=== PATIENT | male | born 1965 | race Caucasian/White ===

== ENCOUNTER 2017-08-23 11:57 | Inpatient (IN) | payer OTHER ==
[2017-08-23 15:13] VITALS: BMI 31.1
--- NOTE | 2017-08-23 15:46 | HP ---
CIWA Score - CIWA Score Nausea/Vomitin-Mild Nausea/No Vomiting Muscle Tremors: 4-Moderate,w/Arms Extend Anxiety: 4-Mod. Anxious/Guarded Agitation: 4-Moderately Restless Paroxysmal Sweats: 3 Orientation: 0-Oriented Tacttile Disturbances: 1-Very Mild Itch/Numbness Auditory Disturbances: 0-None Visual Disturbances: 0-None Headache: 1-Very Mild CIWA-Ar Total Score: 18 Admission ROS [facility] - HPI Chief Complaint: I need to be here to get this alcohol out of my system. Allergies/Adverse Reactions: Allergies Allergy/AdvReac Type Severity Reaction Status Date / Time shellfish derived Allergy Severe Itching Verified 08/23/17 15:18 No Known Drug Allergies Allergy Verified 08/23/17 15:18 History of Present Illness: pt is a 52yr old male with a history of alcohol dependence seeking detox for treatment. Exam Limitations: No Limitations - Ebola screening Have you traveled outside of the country in the last 21 days: No Have you had contact with anyone from an Ebola affected area: No Have you been sick,other than usual withdrawal symptoms: No Do you have a fever: No - Review of Systems Constitutional: Chills, Diaphoresis, Night Sweats, Changes in sleep EENT: reports: Nose Congestion Respiratory: reports: Cough Cardiac: reports: No Symptoms Reported GI: reports: No Symptoms Reported, Poor Appetite, Poor Fluid Intake : reports: No Symptoms Reported Musculoskeletal: reports: Back Pain, Joint Pain Integumentary: reports: Bruising (left middle finger), Flushing, Sweating Neuro: reports: Headache, Tingling, Tremors Endocrine: reports: Excessive Sweating, Flushing, Intolerance to Heat Hematology: reports: No Symptoms Reported Psychiatric: reports: Judgement Intact, Mood/Affect Appropiate, Orientated x3, Agitated, Anxious Other Systems: Reviewed and Negative Patient History - Patient Medical History Hx Anemia: No Hx Asthma: Yes Hx Chronic Obstructive Pulmonary Disease (COPD): No Hx Cancer: No Hx Cardiac Disorders: No Hx Congestive Heart Failure: No Hx Hypertension: No Hx Hypercholesterolemia: No Hx Pacemaker: No HX Cerebrovascular Accident: No Hx Seizures: No Hx Dementia: No Hx Diabetes: No Hx Gastrointestinal Disorders: No Hx Liver Disease: No Hx Genitourinary Disorders: Yes (PT HAS BPH.) Hx Sexually Transmitted Disorders: No Hx Renal Disease (ESRD): No Hx Thyroid Disease: No Hx Human Immunodeficiency Virus (HIV): No (last 2016 negative) Hx Hepatitis C: Yes (undetecable) Hx Depression: Yes Hx Suicide Attempt: No (denies) Hx Bipolar Disorder: No Hx Schizophrenia: No - Patient Surgical History Past Surgical History: Yes Hx Neurologic Surgery: No Hx Cataract Extraction: No Hx Cardiac Surgery: No Hx Lung Surgery: No Hx Breast Surgery: No Hx Breast Biopsy: No Hx Abdominal Surgery: No Hx Appendectomy: No Hx Cholecystectomy: No Hx Genitourinary Surgery: No Hx Section: No Hx Orthopedic Surgery: No Other Surgical History: LEFT ARM SURGERY@C 14 TEARS laceration of tendon to left thumb at age 20 ye Anesthesia Reaction: No - PPD History Previous Implant?: Yes Documented Results: Negative w/proof Implanted On Prior [facility] Admission?: Yes Date: 02/10/17 Results: 0 MM PPD to be Administered?: No - Reproductive History Patient is a Female of Child Bearing Age (11 -55 yrs old): No - Smoking Cessation Smoking history: Current every day smoker Have you smoked in the past 12 months: Yes Aproximately how many cigarettes per day: 4 Hx Chewing Tobacco Use: No Initiated information on smoking cessation: Yes 'Breaking Loose' booklet given: 08/23/17 - Substance & Tx. History Hx Alcohol Use: Yes Substance Use Type: Alcohol Hx Substance Use Treatment: No - Substances Abused Alcohol Route: Oral Frequency: Daily Amount used: 3-4 PINTS VODKA Age of first use: 13 Date of Last Use: 08/23/17 Family Disease History - Family Disease History Family Disease History: Diabetes: Mother (), Other: Father (alcohol, ), Brother (alcohol,) Admission Physical Exam S - Vital Signs Vital Signs: Vital Signs - 24 hr 08/23/17 14:58 Temperature 97.7 F Pulse Rate 105 H Respiratory 20 Rate Blood Pressure 104/69 - Physical General Appearance: Yes: Appropriately Dressed, Moderate Distress, Obese, Tremorous, Irritable, Sweating, Anxious HEENTM: Yes: Normal Voice, Nasal Congestion, Rhinorrhea Respiratory: Yes: Lungs Clear, Normal Breath Sounds, No Respiratory Distress Neck: Yes: No masses,lesions,Nodules Breast: Yes: Within Normal Limits Cardiology: Yes: Regular Rhythm, Regular Rate, S1, S2 Abdominal: Yes: Normal Bowel Sounds, Non Tender, Soft Genitourinary: Yes: Within Normal Limits Back: Yes: Normal Inspection Musculoskeletal: Yes: full range of Motion, Back pain Extremities: Yes: Normal Capillary Refill, Normal Inspection, Tremors Neurological: Yes: Fully Oriented, Alert, Normal Response Integumentary: Yes: Other (bruise with some swelling to left middle finger) Lymphatic: Yes: Within Normal Limits - Diagnostic (1) Alcohol dependence with uncomplicated withdrawal Current Visit: Yes Status: Chronic (2) Asthma Current Visit: Yes Status: Chronic Qualifiers: Asthma severity: mild Asthma complication type: uncomplicated (3) Hepatitis C Current Visit: No Status: Acute (4) Use of cane as ambulatory aid Current Visit: Yes Status: Chronic (5) Benign prostatic hyperplasia with urinary obstruction Current Visit: Yes Status: Chronic (6) Superficial bruising of finger Current Visit: Yes Status: Chronic Qualifiers: Encounter type: initial encounter Laterality: left Cleared for Admission [facility] - Detox or Rehab [facility] Level of Care: Medically Managed Detox Regimen/Protocol: Librium [facility] Breath Alcohol Content Breath Alcohol Content: 0.321 Urine Drug Screen - Results Drug Screen Negative: No Urine Drug Screen Results: JULIUS-Cocaine
[2017-08-23] MEDS ORDERED: MAG HYDROX/AL HYDROX/SIMETH 30 ML UNIT-DOSE CUP PO PRN (15:51)
[2017-08-23] MEDS ORDERED: MAGNESIUM HYDROX 2400MG/30ML ORAL SUSPENSION 30 ML CUP PO PRN (15:51)
[2017-08-23] MEDS ORDERED: P-EPHED 60MG/TRIPROLIDI 2.5MG TABLET PO PRN (15:51)
[2017-08-23] MEDS ORDERED: IBUPROFEN 400 MG TABLET (FP) PO PRN (15:51)
[2017-08-23] MEDS ORDERED: guaiFENesin/D-METHORPHAN HB 10 ML UNIT-DOSE CUPS PO PRN (15:51)
[2017-08-23] MEDS ORDERED: MAGNESIUM CITRATE 300 ML BOTTLE PO PRN (15:51)
[2017-08-23] MEDS ORDERED: ACETAMINOPHEN 325 MG TABLET (FP) PO PRN (15:51)
[2017-08-23] MEDS ORDERED: LOPERAMIDE HCL 2 MG CAPSULE PO PRN (15:51)
[2017-08-23] MEDS ORDERED: chlordiazePOXIDE HCL 25 MG CAPSULE PO PRN (15:51)
[2017-08-23] MEDS ORDERED: MENTHOL/PHENOL 1 EACH UD MM PRN (15:51)
[2017-08-23] MEDS ORDERED: ALBUTEROL SO4 18 GM HFA INHALER IH PRN (15:52)
[2017-08-23] MEDS ORDERED: chlordiazePOXIDE HCL 25 MG CAPSULE PO ONE (18:15)
[2017-08-23] MEDS: chlordiazePOXIDE HCL 25 MG CAPSULE PO SCH ×2 (19:04→22:07)
[2017-08-23] MEDS: hydrOXYzine PAMOATE 50 MG CAPSULE (FP) PO PRN (22:07)
[2017-08-23] MEDS: THIAMINE HCL 100 MG TABLET (FP) PO SCH (22:07)
[2017-08-23] MEDS: BACITRACIN 0.9 GM PACKET TP SCH (22:08)
[2017-08-23 22:55] LABS: URINE APPEARANCE CLEAR; URINE BILIRUBIN NEGATIVE (NEGATIVE); URINE BLOOD NEGATIVE (NEGATIVE); URINE COLOR YELLOW; URINE GLUCOSE (UA) 3+ (NEGATIVE); URINE KETONE NEGATIVE (NEGATIVE); URINE LEUK ESTERASE NEGATIVE (NEGATIVE); URINE NITRITE NEGATIVE (NEGATIVE); URINE PROTEIN NEGATIVE (NEGATIVE); URINE UROBILINOGEN 4.0 E.U/dl mg/dL (0.2-1.0)
[2017-08-24] MEDS: chlordiazePOXIDE HCL 25 MG CAPSULE PO SCH ×4 (05:30→22:19)
--- NOTE | 2017-08-24 10:08 | PN ---
S CIWA - CIWA Score Nausea/Vomitin Muscle Tremors: 3 Anxiety: 3 Agitation: 3 Paroxysmal Sweats: 1-Minimal Palms Moist Orientation: 0-Oriented Tacttile Disturbances: 1-Very Mild Itch/Numbness Auditory Disturbances: 1-Very Mild Visual Disturbances: 0-None Headache: 2-Mild CIWA-Ar Total Score: 17 BHS Progress Note (SOAP) Subjective: ALERT,IRRITABLE,ANXIOUS,INTERRUPTED SLEEP,TREMOR,BACK PAIN Objective: 08/24/17 10:07 Vital Signs Temperature 97.7 F 08/24/17 06:45 Pulse Rate 65 08/24/17 07:30 Respiratory Rate 18 08/24/17 07:30 Blood Pressure 141/85 08/24/17 06:45 O2 Sat by Pulse Oximetry (%) EKG NSR,NORMAL ECG Laboratory Last Values Urine Color Yellow 08/23/17 Unknown Urine Appearance Clear 08/23/17 Unknown Urine pH 6.0 (5.0-8.0) 08/23/17 Unknown Ur Specific [place] 1.011 (1.001-1.035) 08/23/17 Unknown Urine Protein Negative (NEGATIVE) 08/23/17 Unknown Urine Glucose (UA) 3+ (NEGATIVE) H 08/23/17 Unknown Urine Ketones Negative (NEGATIVE) 08/23/17 Unknown Urine Blood Negative (NEGATIVE) 08/23/17 Unknown Urine Nitrite Negative (NEGATIVE) 08/23/17 Unknown Urine Bilirubin Negative (NEGATIVE) 08/23/17 Unknown Urine Urobilinogen 4.0 e.u/dl mg/dL (0.2-1.0) 08/23/17 Unknown Ur Leukocyte Esterase Negative (NEGATIVE) 08/23/17 Unknown LABS PENDING Assessment: 08/24/17 10:07 WITHDRAWAL SYMPTOM Plan: CONTINUE DETOX
[2017-08-24 10:13] LABS: HEMATOCRIT 46.7 % (35.4-49); HEMOGLOBIN 15.3 GM/dL (11.7-16.9); MCH 33.7 pg (25.7-33.7); MCHC 32.9 g/dl (32.0-35.9); MEAN CELL VOLUME 102.7 fl (80-96); MEAN PLT VOLUME 8.7 fl (7.5-11.1); PLATELET COUNT 161 K/MM3 (134-434); RBC 4.55 M/mm3 (4.00-5.60); RDW 13.9 % (11.9-15.9); WHITE BLOOD COUNT 9.4 K/mm3 (4.0-10.0)
[2017-08-24] MEDS: LIDOCAINE 5% TOPICAL PATCH TP SCH (10:19)
[2017-08-24] MEDS: TAMSULOSIN HCL 0.4 MG CAP.ER.24H (FP) PO SCH (10:19)
[2017-08-24] MEDS: PRENATAL VITAMINS W/ FOLIC ACID TABLET (FP) PO SCH (10:19)
[2017-08-24] MEDS: BACITRACIN 0.9 GM PACKET TP SCH ×2 (10:19→22:19)
[2017-08-24] MEDS: NICOTINE 21 MG/24 HOURS TOPICAL PATCH TD SCH (10:21)
[2017-08-24 10:31] LABS: CHLORIDE 103 mmol/L (98-107); POTASSIUM 3.6 mmol/L (3.5-5.1); SODIUM 141 mmol/L (136-145)
[2017-08-24 10:56] LABS: ALBUMIN 2.8 g/dl (3.4-5.0); ALK PHOS 74 U/L (45-117); ANION GAP 12 (8-16); BILIRUBIN,TOTAL 0.8 mg/dL (0.2-1.0); BLOOD UREA NITROGEN 6 mg/dL (7-18); CALCIUM 8.5 mg/dL (8.5-10.1); CO2 26 mmol/L (21-32); CREATININE 0.5 mg/dL (0.7-1.3); GLUCOSE,RANDOM 92 mg/dL (74-106); SGOT/AST 46 U/L (15-37); SGPT/ALT 46 U/L (12-78); TOT PROT 6.3 g/dl (6.4-8.2)
--- NOTE | 2017-08-24 11:03 | CONSULT ---
[facility] Psychiatric Consult - Data Date of interview: 08/24/17 Admission source: [facility] Identifying data: Pt. is a 52 year old single male, without kids, and currently unemployed. This is one of multiple admissions for patient. Pt. admitted to for alcohol dependence. Substance Abuse History: Following information confirmed with Mr. Potts: Smoking Cessation. Smoking history: Current every day smoker. Have you smoked in the past 12 months: Yes. Aproximately how many cigarettes per day: 4. Hx Chewing Tobacco Use: No. Initiated information on smoking cessation: Yes. ' Breaking Loose' booklet given: 08/23/17. - Substance & Tx. History. Hx Alcohol Use: Yes. Substance Use Type: Alcohol. Hx Substance Use Treatment: No. - Substances Abused. Alcohol. Route: Oral. Frequency: Daily. Amount used: 3-4 PINTS VODKA. Age of first use: 13. Date of Last Use: 08/23/17 Medical History: Asthma, BPH, Hep C Psychiatric History: Pt. denies h/o psychiatric hospitalizations and suicide attempts. Pt. reports living in the building called "[facility]" in [place] and see's a psychiatrist there every six months. Pt. denies h/o taking medications and diagnosis is unknown. Pt. denies suicidal and homicidal ideation. Physical/Sexual Abuse/Trauma History: Denies. Mental Status Exam - Mental Status Exam Alert and Oriented to: Time, Place, Person Cognitive Function: Good Patient Appearance: Well Groomed Mood: Euthymic Affect: Mood Congruent Patient Behavior: Cooperative Speech Pattern: Appropriate Voice Loudness: Normal Thought Process: Goal Oriented Thought Disorder: Not Present Hallucinations: Denies Suicidal Ideation: Denies Homicidal Ideation: Denies Insight/Judgement: Poor Sleep: Poorly Appetite: Fair Muscle strength/Tone: Normal Gait/Station: Normal Psychiatric Findings - Problem List ([place] 1, 2,3) (1) Alcohol dependence with uncomplicated withdrawal Current Visit: Yes Status: Acute (2) Insomnia Current Visit: Yes Status: Acute - Initial Treatment Plan Initial Treatment Plan: Psychoeducation provided. Detoxification in progress. Benadryl 50mg qhs prn ordered for insomnia. Benefits and side effects discussed. Verbal consent given.
[2017-08-24] MEDS ORDERED: diphenhydrAMINE HCL 50 MG CAPSULE PO PRN (22:00)
[2017-08-24] MEDS: hydrOXYzine PAMOATE 50 MG CAPSULE (FP) PO PRN (22:19)
[2017-08-24] MEDS: THIAMINE HCL 100 MG TABLET (FP) PO SCH (22:19)
[2017-08-24] MEDS: LIDOCAINE PATCH REMOVAL MC SCH (22:37)
[2017-08-25] MEDS: chlordiazePOXIDE HCL 25 MG CAPSULE PO SCH ×2 (05:53→10:33)
[2017-08-25] MEDS: PRENATAL VITAMINS W/ FOLIC ACID TABLET (FP) PO SCH (10:33)
[2017-08-25] MEDS: NICOTINE 21 MG/24 HOURS TOPICAL PATCH TD SCH (10:33)
[2017-08-25] MEDS: TAMSULOSIN HCL 0.4 MG CAP.ER.24H (FP) PO SCH (10:33)
[2017-08-25] MEDS: BACITRACIN 0.9 GM PACKET TP SCH ×2 (10:34→21:59)
[2017-08-25] MEDS: LIDOCAINE 5% TOPICAL PATCH TP SCH (10:34)
[2017-08-25] MEDS: chlordiazePOXIDE 5 MG CAPSULE PO SCH ×2 (17:36→21:59)
--- NOTE | 2017-08-25 19:07 | PN ---
[facility] CIWA - CIWA Score Nausea/Vomitin Muscle Tremors: 3 Anxiety: 3 Agitation: 3 Paroxysmal Sweats: 3 Orientation: 0-Oriented Tacttile Disturbances: 0-None Auditory Disturbances: 0-None Visual Disturbances: 0-None Headache: 0-None Present CIWA-Ar Total Score: 15 S Progress Note (SOAP) Subjective: sleep disturbance tired shakes Objective: 08/25/17 19:06 A & Ox 3 Vital Signs Temperature 98.2 F 08/25/17 18:10 Pulse Rate 116 H 08/25/17 18:10 Respiratory Rate 20 08/25/17 18:10 Blood Pressure 144/86 08/25/17 18:10 O2 Sat by Pulse Oximetry (%) Laboratory Last Values WBC 9.4 K/mm3 (4.0-10.0) 08/24/17 07:40 RBC 4.55 M/mm3 (4.00-5.60) 08/24/17 07:40 Hgb 15.3 GM/dL (11.7-16.9) 08/24/17 07:40 Hct 46.7 % (35.4-49) 08/24/17 07:40 MCV 102.7 fl (80-96) H 08/24/17 07:40 MCH 33.7 pg (25.7-33.7) 08/24/17 07:40 MCHC 32.9 g/dl (32.0-35.9) 08/24/17 07:40 RDW 13.9 % (11.9-15.9) 08/24/17 07:40 Plt Count 161 K/MM3 (134-434) 08/24/17 07:40 MPV 8.7 fl (7.5-11.1) 08/24/17 07:40 Sodium 141 mmol/L (136-145) 08/24/17 07:40 Potassium 3.6 mmol/L (3.5-5.1) 08/24/17 07:40 Chloride 103 mmol/L (98-107) 08/24/17 07:40 Carbon Dioxide 26 mmol/L (21-32) 08/24/17 07:40 Anion Gap 12 (8-16) 08/24/17 07:40 BUN 6 mg/dL (7-18) L D 08/24/17 07:40 Creatinine 0.5 mg/dL (0.7-1.3) L 08/24/17 07:40 Creat Clearance w eGFR > 60 (>60) 08/24/17 07:40 Random Glucose 92 mg/dL (74-106) D 08/24/17 07:40 Calcium 8.5 mg/dL (8.5-10.1) 08/24/17 07:40 Total Bilirubin 0.8 mg/dL (0.2-1.0) D 08/24/17 07:40 AST 46 U/L (15-37) H D 08/24/17 07:40 ALT 46 U/L (12-78) D 08/24/17 07:40 Alkaline Phosphatase 74 U/L (45-117) 08/24/17 07:40 Total Protein 6.3 g/dl (6.4-8.2) L 08/24/17 07:40 Albumin 2.8 g/dl (3.4-5.0) L 08/24/17 07:40 Urine Color Yellow 08/23/17 Unknown Urine Appearance Clear 08/23/17 Unknown Urine pH 6.0 (5.0-8.0) 08/23/17 Unknown Ur Specific [place] 1.011 (1.001-1.035) 08/23/17 Unknown Urine Protein Negative (NEGATIVE) 08/23/17 Unknown Urine Glucose (UA) 3+ (NEGATIVE) H 08/23/17 Unknown Urine Ketones Negative (NEGATIVE) 08/23/17 Unknown Urine Blood Negative (NEGATIVE) 08/23/17 Unknown Urine Nitrite Negative (NEGATIVE) 08/23/17 Unknown Urine Bilirubin Negative (NEGATIVE) 08/23/17 Unknown Urine Urobilinogen 4.0 e.u/dl mg/dL (0.2-1.0) 08/23/17 Unknown Ur Leukocyte Esterase Negative (NEGATIVE) 08/23/17 Unknown RPR Titer Nonreactive (NONREACTIVE) 08/24/17 07:40 HIV 1&2 Antibody Screen Negative 08/24/17 07:40 HIV P24 Antigen Negative 08/24/17 07:40 labs noted Assessment: 08/25/17 19:06 withdrawal sx Plan: continue detox increase fluids
[2017-08-25] MEDS: THIAMINE HCL 100 MG TABLET (FP) PO SCH (21:59)
[2017-08-25] MEDS: diphenhydrAMINE HCL 50 MG CAPSULE PO PRN (21:59)
[2017-08-25] MEDS: LIDOCAINE PATCH REMOVAL MC SCH (23:16)
[2017-08-26] MEDS: chlordiazePOXIDE 5 MG CAPSULE PO SCH ×2 (06:04→10:22)
[2017-08-26] MEDS: TAMSULOSIN HCL 0.4 MG CAP.ER.24H (FP) PO SCH (10:22)
[2017-08-26] MEDS: BACITRACIN 0.9 GM PACKET TP SCH ×2 (10:22→22:11)
[2017-08-26] MEDS: PRENATAL VITAMINS W/ FOLIC ACID TABLET (FP) PO SCH (10:22)
[2017-08-26] MEDS: NICOTINE 21 MG/24 HOURS TOPICAL PATCH TD SCH (10:23)
[2017-08-26] MEDS: LIDOCAINE 5% TOPICAL PATCH TP SCH (10:40)
--- NOTE | 2017-08-26 10:53 | PN ---
S Progress Note (SOAP) Subjective: alert oriented x 3 tolerate food and fluid well confident in sobriety self management Objective: 08/26/17 10:52 Vital Signs Temperature 97.7 F 08/26/17 10:00 Pulse Rate 110 H 08/26/17 10:00 Respiratory Rate 20 08/26/17 10:00 Blood Pressure 136/88 08/26/17 10:00 O2 Sat by Pulse Oximetry (%) Laboratory Last Values WBC 9.4 K/mm3 (4.0-10.0) 08/24/17 07:40 RBC 4.55 M/mm3 (4.00-5.60) 08/24/17 07:40 Hgb 15.3 GM/dL (11.7-16.9) 08/24/17 07:40 Hct 46.7 % (35.4-49) 08/24/17 07:40 MCV 102.7 fl (80-96) H 08/24/17 07:40 MCH 33.7 pg (25.7-33.7) 08/24/17 07:40 MCHC 32.9 g/dl (32.0-35.9) 08/24/17 07:40 RDW 13.9 % (11.9-15.9) 08/24/17 07:40 Plt Count 161 K/MM3 (134-434) 08/24/17 07:40 MPV 8.7 fl (7.5-11.1) 08/24/17 07:40 Sodium 141 mmol/L (136-145) 08/24/17 07:40 Potassium 3.6 mmol/L (3.5-5.1) 08/24/17 07:40 Chloride 103 mmol/L (98-107) 08/24/17 07:40 Carbon Dioxide 26 mmol/L (21-32) 08/24/17 07:40 Anion Gap 12 (8-16) 08/24/17 07:40 BUN 6 mg/dL (7-18) L D 08/24/17 07:40 Creatinine 0.5 mg/dL (0.7-1.3) L 08/24/17 07:40 Creat Clearance w eGFR > 60 (>60) 08/24/17 07:40 Random Glucose 92 mg/dL (74-106) D 08/24/17 07:40 Calcium 8.5 mg/dL (8.5-10.1) 08/24/17 07:40 Total Bilirubin 0.8 mg/dL (0.2-1.0) D 08/24/17 07:40 AST 46 U/L (15-37) H D 08/24/17 07:40 ALT 46 U/L (12-78) D 08/24/17 07:40 Alkaline Phosphatase 74 U/L (45-117) 08/24/17 07:40 Total Protein 6.3 g/dl (6.4-8.2) L 08/24/17 07:40 Albumin 2.8 g/dl (3.4-5.0) L 08/24/17 07:40 Urine Color Yellow 08/23/17 Unknown Urine Appearance Clear 08/23/17 Unknown Urine pH 6.0 (5.0-8.0) 08/23/17 Unknown Ur Specific [place] 1.011 (1.001-1.035) 08/23/17 Unknown Urine Protein Negative (NEGATIVE) 08/23/17 Unknown Urine Glucose (UA) 3+ (NEGATIVE) H 08/23/17 Unknown Urine Ketones Negative (NEGATIVE) 08/23/17 Unknown Urine Blood Negative (NEGATIVE) 08/23/17 Unknown Urine Nitrite Negative (NEGATIVE) 08/23/17 Unknown Urine Bilirubin Negative (NEGATIVE) 08/23/17 Unknown Urine Urobilinogen 4.0 e.u/dl mg/dL (0.2-1.0) 08/23/17 Unknown Ur Leukocyte Esterase Negative (NEGATIVE) 08/23/17 Unknown RPR Titer Nonreactive (NONREACTIVE) 08/24/17 07:40 HIV 1&2 Antibody Screen Negative 08/24/17 07:40 HIV P24 Antigen Negative 08/24/17 07:40 lab noted Assessment: 08/26/17 10:52 mild withdrawal sx Plan: medically supervised detox
[2017-08-26] MEDS: chlordiazePOXIDE HCL 10 MG CAPSULE PO SCH ×2 (17:42→22:11)
[2017-08-26] MEDS: THIAMINE HCL 100 MG TABLET (FP) PO SCH (22:11)
[2017-08-26] MEDS: diphenhydrAMINE HCL 50 MG CAPSULE PO PRN (22:12)
[2017-08-26] MEDS: LIDOCAINE PATCH REMOVAL MC SCH (23:50)
[2017-08-27] MEDS: chlordiazePOXIDE HCL 10 MG CAPSULE PO SCH (06:00)
[2017-08-27] MEDS: NICOTINE 21 MG/24 HOURS TOPICAL PATCH TD SCH (09:51)
[2017-08-27] MEDS: LIDOCAINE 5% TOPICAL PATCH TP SCH (09:51)
[2017-08-27] MEDS: TAMSULOSIN HCL 0.4 MG CAP.ER.24H (FP) PO SCH (09:51)
[2017-08-27] MEDS: PRENATAL VITAMINS W/ FOLIC ACID TABLET (FP) PO SCH (09:51)
[2017-08-27] MEDS: BACITRACIN 0.9 GM PACKET TP SCH (09:51)
--- NOTE | 2017-08-27 09:57 | DS ---
[facility] Detox Discharge Summary Admission Date: 08/23/17 Discharge Date: 08/27/17 - History Present History: Alcohol Dependence Additional Comments: FOLLOW UP WITH AFTER CARE PROGRAM ARRANGEMENT Pertinent Past History: ASTHMA HEPATITIS C USE CANE FOR AMBULATORY AID LOW BACK PAIN CHRONIC BPH - Physical Exam Results Vital Signs: Vital Signs Temperature 97.0 F L 08/27/17 06:03 Pulse Rate 79 08/27/17 06:03 Respiratory Rate 20 08/27/17 06:03 Blood Pressure 129/75 08/27/17 06:03 O2 Sat by Pulse Oximetry (%) Pertinent Admission Physical Exam Findings: WITHDRAWAL SIGNS AND SYMPTOM - Treatment Hospital Course: Detox Protocol Followed, Detoxed Safely, Responded well, Discharged Condition Good, Rehab Referral Accepted Patient has Accepted a Rehab Referral to: [facility] - Medication Discharge Medications: Ambulatory Orders Loratadine [Alavert] 10 mg PO DAILY 02/08/17 Naltrexone HCl [Revia -] 50 mg PO DAILY 02/08/17 Ibuprofen [Motrin -] 600 mg PO TID 08/23/17 Albuterol Sulfate Inhaler - [Ventolin HFA Inhaler -] 2 inh PO Q4H PRN #1 inhaler 08/26/17 Tamsulosin HCl [Flomax -] 0.4 mg PO DAILY #30 cap.er.24h 08/26/17 - Diagnosis (1) Alcohol dependence with uncomplicated withdrawal Current Visit: Yes Status: Acute (2) Asthma Current Visit: Yes Status: Chronic Qualifiers: Asthma severity: mild Asthma complication type: uncomplicated (3) Use of cane as ambulatory aid Current Visit: Yes Status: Chronic (4) Hepatitis C Current Visit: No Status: Acute (5) Herniated disc Current Visit: No Status: Acute (6) Low back pain Current Visit: No Status: Acute (7) BPH (benign prostatic hyperplasia) Current Visit: Yes Status: Acute - AMA Did Patient Leave Against Medical Advice: No
[2017-08-27 10:55] VITALS: BP 118/73; PULSE 113; TEMP 96.4
--- NOTE | 2017-08-28 13:38 | EKG ---
Test Reason : Blood Pressure : / mmHG Vent. Rate : 093 BPM Atrial Rate : 093 BPM P-R Int : 124 ms QRS Dur : 082 ms QT Int : 364 ms P-R-T Axes : 065 -09 024 degrees QTc Int : 452 ms NORMAL SINUS RHYTHM NORMAL ECG WHEN COMPARED WITH ECG OF 08-FEB-2017 18:00, NO SIGNIFICANT CHANGE WAS FOUND Confirmed by MD Trotter Daniel ([id number]) on 08/28/2017 1:38:29 PM Referred By: Confirmed By:Tu Trotter MD
== END 2017-08-27 13:15 | disposition other institution (70) | DRG 775 ==
LOC: YASAS 11:57 → Y6N 17:55
PROVIDERS: ADMIT Internal Medicine; ATTEND Internal Medicine
PROC: HZ2ZZZZ Detoxification Services for Substance Abuse Treatment (ICD-10-PCS; principal; 2017-08-23)
DX: F10.230 Alcohol dependence with withdrawal, uncomplicated (principal); G47.00 Insomnia, unspecified; B18.2 Chronic viral hepatitis C; J45.909 Unspecified asthma, uncomplicated; M54.5 Low back pain; G89.29 Other chronic pain; N40.0 Benign prostatic hyperplasia without lower urinary tract symptoms; R26.89 Other abnormalities of gait and mobility; Z99.89 Dependence on other enabling machines and devices
CPT/HCPCS: 36415; 73140-TC-LT-FY; 80053; 81003; 85027; 86593; 87389; 93005; 93010

== ENCOUNTER 2017-08-27 14:21 | Inpatient (IN) | payer OTHER ==
--- NOTE | 2017-08-27 15:49 | HP ---
[facility] Re[facility] Assess/Revision - Admission History Admitted to Rehab from: [facility] Date of Admission to Rehab: 08/27/17 - Findings Detox History & Physical reviewed: Yes Concur with findings: Yes Comments/Additional Findings: for rehab as protocol Inpatient Rehab Admission - Initial Determination Are CD services needed?: Yes Free of communicable disease: Yes Not in need of hospitalization: Yes - Rehab Admission Criteria Previous failed treatment: Yes Poor recovery environment: Yes Comorbidities: Yes Lacks judgement: No Patient is meeting Inpatient Rehab admission criteria:: Yes
[2017-08-27] MEDS ORDERED: MAGNESIUM HYDROX 2400MG/30ML ORAL SUSPENSION 30 ML CUP PO PRN (15:50)
[2017-08-27] MEDS ORDERED: IBUPROFEN 400 MG TABLET (FP) PO PRN (15:50)
[2017-08-27] MEDS ORDERED: MAG HYDROX/AL HYDROX/SIMETH 30 ML UNIT-DOSE CUP PO PRN (15:50)
[2017-08-27] MEDS ORDERED: MENTHOL/PHENOL 1 EACH UD MM PRN (15:50)
[2017-08-27] MEDS ORDERED: MAGNESIUM CITRATE 300 ML BOTTLE PO PRN (15:50)
[2017-08-27] MEDS ORDERED: LOPERAMIDE HCL 2 MG CAPSULE PO PRN (15:50)
[2017-08-27] MEDS ORDERED: guaiFENesin/D-METHORPHAN HB 10 ML UNIT-DOSE CUPS PO PRN (15:50)
[2017-08-27] MEDS ORDERED: hydrOXYzine PAMOATE 50 MG CAPSULE (FP) PO PRN (15:50)
[2017-08-27] MEDS ORDERED: ACETAMINOPHEN 325 MG TABLET (FP) PO PRN (15:50)
[2017-08-27] MEDS ORDERED: ALBUTEROL SO4 18 GM HFA INHALER IH PRN (15:51)
[2017-08-27] MEDS: NICOTINE 21 MG/24 HOURS TOPICAL PATCH TD SCH (17:33)
[2017-08-27] MEDS: THIAMINE HCL 100 MG TABLET (FP) PO SCH (21:42)
[2017-08-27] MEDS: SUVOREXANT 10 MG TABLET PO PRN (21:42)
--- NOTE | 2017-08-28 06:20 | HP ---
Psychiatrist Admission - Data Date of interview: 08/28/17 Admission source: [facility] Identifying data: This is the first [facility] admission for this 52 years old single male, unemployed on public assistance, domiciled living in an [place] in [place] Medical History: Significant for bronchial asthma, BPH, herniated disc/back pain and history of treatment for hepatitis C, surgeries for umbilical hernia repair as a new born and repair of laceration of tendon of left hand at age 20. Smokes 4 cigarettes daily Psychiatric History: Denies history of previous psychiatric treatment Physical/Sexual Abuse/Trauma History: Denies history of emotional, physical or sexual abuse as well as DV relationship. No service Additional Comment: Reports history of 2 previous misdemeanor arrests as a kid Allergies/Adverse Reactions: Allergies Allergy/AdvReac Type Severity Reaction Status Date / Time shellfish derived Allergy Severe Itching Verified 08/23/17 15:18 No Known Drug Allergies Allergy Verified 08/23/17 15:18 Date of last physical exam: 08/23/17 Concur with the findings of this exam: Yes - Substance Abuse/Tx History Hx Alcohol Use: Yes Hx Substance Use: No Substance Use Type: Alcohol (Started drinking salcohol at age 13, consumes 3-4 pints daily. Last drank on 08/23/17) Hx Substance Use Treatment: Yes (2 previous inpt detox admissions @ [facility]) Mental Status Exam - Mental Status Exam Alert and Oriented to: Time, Place, Person Cognitive Function: Fair Patient Appearance: Disheveled Mood: Hopeful, Euthymic Affect: Appropriate Patient Behavior: Cooperative Speech Pattern: Clear Voice Loudness: Normal Thought Process: Intact, Goal Oriented Thought Disorder: Not Present Hallucinations: Denies Suicidal Ideation: Denies Homicidal Ideation: Denies Insight/Judgement: Poor Sleep: Poorly Appetite: Fair Muscle strength/Tone: Normal Gait/Station: Normal (Patient uses a cane as ambulatory aid) Psychiatric Findings - Problem List ([place] 1, 2,3) (1) Alcohol dependence Current Visit: Yes Status: Acute (2) Nicotine dependence Current Visit: Yes Status: Chronic (3) Alcohol-induced sleep disorder Current Visit: Yes Status: Acute (4) BPH (benign prostatic hyperplasia) Current Visit: No Status: Chronic (5) Hepatitis C Current Visit: No Status: Resolved (6) Herniated disc Current Visit: No Status: Acute (7) Pain in both knees Current Visit: No Status: Chronic (8) Asthma Current Visit: No Status: Chronic Qualifiers: Asthma severity: mild Asthma complication type: uncomplicated (9) Superficial bruising of finger Current Visit: No Status: Chronic Qualifiers: Encounter type: initial encounter Laterality: left (10) Use of cane as ambulatory aid Current Visit: No Status: Chronic - Initial Treatment Plan Initial Treatment Plan: 1) Start Belsomra 10 mg po HS prn for insomnia. 2) Monitor progress
[2017-08-28] MEDS: PRENATAL VITAMINS W/ FOLIC ACID TABLET (FP) PO SCH (10:30)
[2017-08-28] MEDS: NICOTINE 21 MG/24 HOURS TOPICAL PATCH TD SCH (10:30)
[2017-08-28] MEDS: TAMSULOSIN HCL 0.4 MG CAP.ER.24H (FP) PO SCH (10:30)
[2017-08-28] MEDS: NICOTINE POLACRILEX 4 MG GUM BUC PRN ×2 (10:32→13:48)
[2017-08-28] MEDS: THIAMINE HCL 100 MG TABLET (FP) PO SCH (21:11)
[2017-08-28] MEDS: SUVOREXANT 10 MG TABLET PO PRN (21:11)
[2017-08-29] MEDS: PRENATAL VITAMINS W/ FOLIC ACID TABLET (FP) PO SCH (10:14)
[2017-08-29] MEDS: TAMSULOSIN HCL 0.4 MG CAP.ER.24H (FP) PO SCH (10:14)
[2017-08-29] MEDS: NICOTINE 21 MG/24 HOURS TOPICAL PATCH TD SCH (10:14)
[2017-08-29] MEDS: NICOTINE POLACRILEX 4 MG GUM BUC PRN ×2 (10:15→21:24)
[2017-08-29] MEDS: SUVOREXANT 10 MG TABLET PO PRN (21:23)
[2017-08-29] MEDS: THIAMINE HCL 100 MG TABLET (FP) PO SCH (21:23)
[2017-08-30] MEDS: PRENATAL VITAMINS W/ FOLIC ACID TABLET (FP) PO SCH (09:49)
[2017-08-30] MEDS: TAMSULOSIN HCL 0.4 MG CAP.ER.24H (FP) PO SCH (09:49)
[2017-08-30] MEDS: NICOTINE POLACRILEX 4 MG GUM BUC PRN ×2 (09:50→21:10)
[2017-08-30] MEDS: NICOTINE 21 MG/24 HOURS TOPICAL PATCH TD SCH (09:50)
[2017-08-30] MEDS: P-EPHED 60MG/TRIPROLIDI 2.5MG TABLET PO PRN (09:51)
[2017-08-30] MEDS: SUVOREXANT 10 MG TABLET PO PRN (21:10)
[2017-08-30] MEDS: THIAMINE HCL 100 MG TABLET (FP) PO SCH (22:18)
[2017-08-31] MEDS: TAMSULOSIN HCL 0.4 MG CAP.ER.24H (FP) PO SCH (10:07)
[2017-08-31] MEDS: NICOTINE 21 MG/24 HOURS TOPICAL PATCH TD SCH (10:07)
[2017-08-31] MEDS: PRENATAL VITAMINS W/ FOLIC ACID TABLET (FP) PO SCH (10:07)
[2017-08-31] MEDS: NICOTINE POLACRILEX 4 MG GUM BUC PRN ×2 (10:08→21:30)
--- NOTE | 2017-08-31 15:04 | PN ---
[facility] Progress Note Note: pateint requesting lidocaine path for ack pain - ordered as reqeusted
[2017-08-31] MEDS: LIDOCAINE 5% TOPICAL PATCH TP SCH (15:50)
[2017-08-31] MEDS: SUVOREXANT 10 MG TABLET PO PRN (21:30)
[2017-08-31] MEDS: THIAMINE HCL 100 MG TABLET (FP) PO SCH (21:30)
[2017-08-31] MEDS: LIDOCAINE PATCH REMOVAL MC SCH (22:00)
[2017-09-01] MEDS: LIDOCAINE 5% TOPICAL PATCH TP SCH (10:00)
[2017-09-01] MEDS: PRENATAL VITAMINS W/ FOLIC ACID TABLET (FP) PO SCH (10:00)
[2017-09-01] MEDS: NICOTINE 21 MG/24 HOURS TOPICAL PATCH TD SCH (10:01)
[2017-09-01] MEDS: TAMSULOSIN HCL 0.4 MG CAP.ER.24H (FP) PO SCH (10:01)
[2017-09-01] MEDS: NICOTINE POLACRILEX 4 MG GUM BUC PRN (10:02)
[2017-09-01] MEDS: LIDOCAINE PATCH REMOVAL MC SCH (21:33)
[2017-09-01] MEDS: SUVOREXANT 10 MG TABLET PO PRN (21:33)
[2017-09-01] MEDS: THIAMINE HCL 100 MG TABLET (FP) PO SCH (21:33)
[2017-09-02] MEDS: PRENATAL VITAMINS W/ FOLIC ACID TABLET (FP) PO SCH (10:08)
[2017-09-02] MEDS: TAMSULOSIN HCL 0.4 MG CAP.ER.24H (FP) PO SCH (10:08)
[2017-09-02] MEDS: NICOTINE 21 MG/24 HOURS TOPICAL PATCH TD SCH (10:09)
[2017-09-02] MEDS: LIDOCAINE 5% TOPICAL PATCH TP SCH (10:09)
[2017-09-02] MEDS: THIAMINE HCL 100 MG TABLET (FP) PO SCH (21:09)
[2017-09-02] MEDS: LIDOCAINE PATCH REMOVAL MC SCH (21:09)
[2017-09-02] MEDS: SUVOREXANT 10 MG TABLET PO PRN (21:09)
[2017-09-03] MEDS: PRENATAL VITAMINS W/ FOLIC ACID TABLET (FP) PO SCH (10:15)
[2017-09-03] MEDS: NICOTINE 21 MG/24 HOURS TOPICAL PATCH TD SCH (10:15)
[2017-09-03] MEDS: TAMSULOSIN HCL 0.4 MG CAP.ER.24H (FP) PO SCH (10:15)
[2017-09-03] MEDS: LIDOCAINE 5% TOPICAL PATCH TP SCH (10:15)
[2017-09-03] MEDS: NICOTINE POLACRILEX 4 MG GUM BUC PRN (10:15)
[2017-09-03] MEDS: THIAMINE HCL 100 MG TABLET (FP) PO SCH (21:32)
[2017-09-03] MEDS: SUVOREXANT 10 MG TABLET PO PRN (21:32)
[2017-09-03] MEDS: LIDOCAINE PATCH REMOVAL MC SCH (21:32)
[2017-09-04] MEDS: NICOTINE 21 MG/24 HOURS TOPICAL PATCH TD SCH (09:55)
[2017-09-04] MEDS: LIDOCAINE 5% TOPICAL PATCH TP SCH (09:55)
[2017-09-04] MEDS: NICOTINE POLACRILEX 4 MG GUM BUC PRN ×2 (09:55→21:57)
[2017-09-04] MEDS: PRENATAL VITAMINS W/ FOLIC ACID TABLET (FP) PO SCH (09:55)
[2017-09-04] MEDS: TAMSULOSIN HCL 0.4 MG CAP.ER.24H (FP) PO SCH (09:55)
--- NOTE | 2017-09-04 11:16 | PN ---
Psychiatric Progress Note Vital Signs: Vital Signs Period Temp Pulse Resp BP Sys/Navas Pulse Ox Last 24 Hr 97.7 F 108 16-20 108/75 Date of Session: 09/04/17 Chief Complaint:: Follow up HPI: Patient addressing Alcohol Dependence comorbid with Nicotine Dependence and Alcohol-Induced Sleep Disorder ROS: BPH, Herniated Disc, Asthma, Arthritis both knees, Hep C Current Medications: Active Medications Generic Name Dose Route Start Last Admin Trade Name Freq PRN Reason Stop Dose Admin Acetaminophen 650 mg 08/27/17 15:50 Tylenol - PO Q4H PRN FEVER Al Hydroxide/Mg Hydroxide 30 ml 08/27/17 15:50 Mylanta Oral Suspension - PO Q6H PRN DYSPEPSIA Albuterol Sulfate 2 puff 08/27/17 15:51 Ventolin Hfa Inhaler - IH Q4H PRN ASTHMA Eucalyptus/Menthol/Phenol/Sorbitol 1 each 08/27/17 15:50 Cepastat Lozenge - MM Q4H PRN SORE THROAT Guaifenesin 10 ml 08/27/17 15:50 Robitussin Dm - PO Q6H PRN COUGH Hydroxyzine Pamoate 50 mg 08/27/17 15:50 Vistaril - PO Q4H PRN AGITATION Ibuprofen 600 mg 08/27/17 15:51 Motrin - PO TID PRN PAIN LEVEL 4 - 6 Lidocaine 1 patch 08/31/17 15:25 09/04/17 09:55 Lidoderm Patch - TP 1 patch DAILY JOSIE Administration Loperamide HCl 4 mg 08/27/17 15:50 Imodium - PO Q6H PRN DIARRHEA Magnesium Citrate 300 ml 08/27/17 15:50 Citroma - PO Q48H PRN CONSTIPATION Magnesium Hydroxide 30 ml 08/27/17 15:50 Milk Of Magnesia - PO DAILY PRN CONSTIPATION Miscellaneous 1 each 08/31/17 22:00 09/03/17 21:32 Lidoderm Patch Removal MC 1 each DAILY@2200 JOSIE Administration Nicotine 21 mg 08/27/17 16:45 09/04/17 09:55 Nicoderm Patch - TD Not Given DAILY JOSIE Nicotine Polacrilex 4 mg 08/27/17 15:50 09/04/17 09:55 Nicorette Gum - BUC 4 mg Q2H PRN Administration NICOTINE REPLACEMENT RX Non-Formulary Medication 50 mg 09/04/17 11:15 Naltrexone Hcl [Revia -] PO DAILY JOSIE Multivit/Folic Acid/Iron 1 tab 08/28/17 10:00 09/04/17 09:55 Vitamins (Sjr) - PO 1 tab DAILY JOSIE Administration Pseudoephedrine/Triprolidine 1 combo 08/27/17 15:50 08/30/17 09:51 Actifed - PO 1 combo TID PRN Administration NASAL CONGESTION Tamsulosin HCl 0.4 mg 08/28/17 10:00 09/04/17 09:55 Flomax - PO 0.4 mg DAILY JOSIE Administration Thiamine HCl 100 mg 08/27/17 22:00 09/03/17 21:32 Vitamin B1 - PO 100 mg HS JOSIE Administration Medication(s) Change(s): Resume Naltrexone 50 mg po daily Current Side Effect: No Lab tests ordered: Yes Lab tests reviewed: Yes Provider note:: Patient reports that he was started on Naltrexone 50 mg po daily a month ago by the psychiatrist on site at his housing. He said that he last took it the day of admission to inpt detox in this facility on 08/23/17. Told freelance writer that medication was somewhat helpful, he brought it with him and would like to resume taking it Total face to face time:: 15 Mental Status Exam - Mental Status Exam Alert and Oriented to: Time, Place, Person Cognitive Function: Fair Patient Appearance: Well Groomed Mood: Hopeful, Euthymic Affect: Appropriate Patient Behavior: Cooperative Speech Pattern: Clear Voice Loudness: Normal Thought Process: Intact, Goal Oriented Thought Disorder: Not Present Hallucinations: Denies Suicidal Ideation: Denies Homicidal Ideation: Denies Insight/Judgement: Fair Sleep: Fair Appetite: Good Muscle strength/Tone: Normal Gait/Station: Normal Psychiatric Treatment Plan - Problem List (1) Alcohol dependence Current Visit: Yes (2) Nicotine dependence Current Visit: Yes (3) Alcohol-induced sleep disorder Current Visit: Yes (4) BPH (benign prostatic hyperplasia) Current Visit: No (5) Hepatitis C Current Visit: No (6) Herniated disc Current Visit: No (7) Pain in both knees Current Visit: No (8) Asthma Current Visit: No Qualifiers: Asthma severity: mild Asthma complication type: uncomplicated (9) Superficial bruising of finger Current Visit: No Qualifiers: Encounter type: initial encounter Laterality: left (10) Use of cane as ambulatory aid Current Visit: No Initial treatment plan: 1) Resume Naltrexone 50 mg po daily. 2) Monitor progress
[2017-09-04] MEDS: NALTREXONE HCL 50 MG TABLET PO SCH (18:56)
[2017-09-04] MEDS: THIAMINE HCL 100 MG TABLET (FP) PO SCH (21:56)
[2017-09-04] MEDS: LIDOCAINE PATCH REMOVAL MC SCH (22:01)
[2017-09-05] MEDS: TAMSULOSIN HCL 0.4 MG CAP.ER.24H (FP) PO SCH (10:22)
[2017-09-05] MEDS: PRENATAL VITAMINS W/ FOLIC ACID TABLET (FP) PO SCH (10:22)
[2017-09-05] MEDS: NICOTINE 21 MG/24 HOURS TOPICAL PATCH TD SCH (10:22)
[2017-09-05] MEDS: NALTREXONE HCL 50 MG TABLET PO SCH (10:22)
[2017-09-05] MEDS: LIDOCAINE 5% TOPICAL PATCH TP SCH (10:22)
[2017-09-05] MEDS: SUVOREXANT 10 MG TABLET PO PRN (21:12)
[2017-09-05] MEDS: THIAMINE HCL 100 MG TABLET (FP) PO SCH (21:12)
[2017-09-05] MEDS: LIDOCAINE PATCH REMOVAL MC SCH (21:13)
[2017-09-06] MEDS: PRENATAL VITAMINS W/ FOLIC ACID TABLET (FP) PO SCH (10:07)
[2017-09-06] MEDS: TAMSULOSIN HCL 0.4 MG CAP.ER.24H (FP) PO SCH (10:07)
[2017-09-06] MEDS: NALTREXONE HCL 50 MG TABLET PO SCH (10:07)
[2017-09-06] MEDS: NICOTINE 21 MG/24 HOURS TOPICAL PATCH TD SCH (10:08)
[2017-09-06] MEDS: LIDOCAINE 5% TOPICAL PATCH TP SCH (10:08)
[2017-09-06] MEDS: LIDOCAINE PATCH REMOVAL MC SCH (21:07)
[2017-09-06] MEDS: THIAMINE HCL 100 MG TABLET (FP) PO SCH (21:07)
[2017-09-06] MEDS: SUVOREXANT 10 MG TABLET PO PRN (21:09)
[2017-09-07] MEDS: NALTREXONE HCL 50 MG TABLET PO SCH (10:10)
[2017-09-07] MEDS: TAMSULOSIN HCL 0.4 MG CAP.ER.24H (FP) PO SCH (10:10)
[2017-09-07] MEDS: PRENATAL VITAMINS W/ FOLIC ACID TABLET (FP) PO SCH (10:11)
[2017-09-07] MEDS: NICOTINE 21 MG/24 HOURS TOPICAL PATCH TD SCH (10:11)
[2017-09-07] MEDS: IBUPROFEN 600 MG TABLET (FP) PO PRN (10:12)
[2017-09-07] MEDS: LIDOCAINE 5% TOPICAL PATCH TP SCH (10:14)
[2017-09-07] MEDS: THIAMINE HCL 100 MG TABLET (FP) PO SCH (21:48)
[2017-09-07] MEDS: SUVOREXANT 10 MG TABLET PO PRN (21:48)
[2017-09-07] MEDS: LIDOCAINE PATCH REMOVAL MC SCH (21:53)
[2017-09-08] MEDS: PRENATAL VITAMINS W/ FOLIC ACID TABLET (FP) PO SCH (09:52)
[2017-09-08] MEDS: NALTREXONE HCL 50 MG TABLET PO SCH (09:52)
[2017-09-08] MEDS: NICOTINE 21 MG/24 HOURS TOPICAL PATCH TD SCH (09:52)
[2017-09-08] MEDS: LIDOCAINE 5% TOPICAL PATCH TP SCH (09:52)
[2017-09-08] MEDS: TAMSULOSIN HCL 0.4 MG CAP.ER.24H (FP) PO SCH (09:52)
[2017-09-08] MEDS: THIAMINE HCL 100 MG TABLET (FP) PO SCH (21:28)
[2017-09-08] MEDS: SUVOREXANT 10 MG TABLET PO PRN (21:28)
[2017-09-08] MEDS: LIDOCAINE PATCH REMOVAL MC SCH (21:29)
[2017-09-09] MEDS: NALTREXONE HCL 50 MG TABLET PO SCH (09:51)
[2017-09-09] MEDS: PRENATAL VITAMINS W/ FOLIC ACID TABLET (FP) PO SCH (09:51)
[2017-09-09] MEDS: NICOTINE 21 MG/24 HOURS TOPICAL PATCH TD SCH (09:51)
[2017-09-09] MEDS: LIDOCAINE 5% TOPICAL PATCH TP SCH (09:51)
[2017-09-09] MEDS: TAMSULOSIN HCL 0.4 MG CAP.ER.24H (FP) PO SCH (09:51)
[2017-09-09] MEDS: IBUPROFEN 600 MG TABLET (FP) PO PRN (09:52)
[2017-09-09] MEDS: SUVOREXANT 10 MG TABLET PO PRN (21:22)
[2017-09-09] MEDS: THIAMINE HCL 100 MG TABLET (FP) PO SCH (21:22)
[2017-09-09] MEDS: LIDOCAINE PATCH REMOVAL MC SCH (21:22)
[2017-09-09] MEDS: P-EPHED 60MG/TRIPROLIDI 2.5MG TABLET PO PRN (21:23)
[2017-09-10] MEDS: NALTREXONE HCL 50 MG TABLET PO SCH (10:16)
[2017-09-10] MEDS: PRENATAL VITAMINS W/ FOLIC ACID TABLET (FP) PO SCH (10:16)
[2017-09-10] MEDS: NICOTINE 21 MG/24 HOURS TOPICAL PATCH TD SCH (10:16)
[2017-09-10] MEDS: LIDOCAINE 5% TOPICAL PATCH TP SCH (10:16)
[2017-09-10] MEDS: TAMSULOSIN HCL 0.4 MG CAP.ER.24H (FP) PO SCH (10:17)
[2017-09-10] MEDS: NICOTINE POLACRILEX 4 MG GUM BUC PRN (10:18)
[2017-09-10] MEDS: THIAMINE HCL 100 MG TABLET (FP) PO SCH (21:33)
[2017-09-10] MEDS: SUVOREXANT 10 MG TABLET PO PRN (21:33)
[2017-09-10] MEDS: LIDOCAINE PATCH REMOVAL MC SCH (21:34)
[2017-09-11] MEDS: NALTREXONE HCL 50 MG TABLET PO SCH (10:04)
[2017-09-11] MEDS: PRENATAL VITAMINS W/ FOLIC ACID TABLET (FP) PO SCH (10:05)
[2017-09-11] MEDS: TAMSULOSIN HCL 0.4 MG CAP.ER.24H (FP) PO SCH (10:05)
[2017-09-11] MEDS: LIDOCAINE 5% TOPICAL PATCH TP SCH (10:05)
[2017-09-11] MEDS: NICOTINE 21 MG/24 HOURS TOPICAL PATCH TD SCH (10:05)
[2017-09-11] MEDS: NICOTINE POLACRILEX 4 MG GUM BUC PRN (10:05)
[2017-09-11] MEDS: LIDOCAINE PATCH REMOVAL MC SCH (21:39)
[2017-09-11] MEDS: THIAMINE HCL 100 MG TABLET (FP) PO SCH (21:39)
[2017-09-11] MEDS: SUVOREXANT 10 MG TABLET PO PRN (21:39)
--- NOTE | 2017-09-12 09:48 | PN ---
Psychiatric Progress Note Vital Signs: Vital Signs Period Temp Pulse Resp BP Sys/Navas Pulse Ox Last 24 Hr 97.6 F 95 20-20 121/74 Date of Session: 09/12/17 Chief Complaint:: Discharge Note HPI: Patient addressing Alcohol Dependence comorbid with Nicotine Dependence and Alcohol-induced Sleep Disorder ROS: BPH, Herniated Disc, Arthritis both knees, Hep C Current Medications: Active Medications Generic Name Dose Route Start Last Admin Trade Name Freq PRN Reason Stop Dose Admin Acetaminophen 650 mg 08/27/17 15:50 Tylenol - PO Q4H PRN FEVER Al Hydroxide/Mg Hydroxide 30 ml 08/27/17 15:50 Mylanta Oral Suspension - PO Q6H PRN DYSPEPSIA Albuterol Sulfate 2 puff 08/27/17 15:51 Ventolin Hfa Inhaler - IH Q4H PRN ASTHMA Eucalyptus/Menthol/Phenol/Sorbitol 1 each 08/27/17 15:50 Cepastat Lozenge - MM Q4H PRN SORE THROAT Guaifenesin 10 ml 08/27/17 15:50 Robitussin Dm - PO Q6H PRN COUGH Hydroxyzine Pamoate 50 mg 08/27/17 15:50 Vistaril - PO Q4H PRN AGITATION Ibuprofen 600 mg 08/27/17 15:51 09/09/17 09:52 Motrin - PO 600 mg TID PRN Administration PAIN LEVEL 4 - 6 Lidocaine 1 patch 08/31/17 15:25 09/11/17 10:05 Lidoderm Patch - TP 1 patch DAILY JOSIE Administration Loperamide HCl 4 mg 08/27/17 15:50 Imodium - PO Q6H PRN DIARRHEA Magnesium Citrate 300 ml 08/27/17 15:50 Citroma - PO Q48H PRN CONSTIPATION Magnesium Hydroxide 30 ml 08/27/17 15:50 Milk Of Magnesia - PO DAILY PRN CONSTIPATION Miscellaneous 1 each 08/31/17 22:00 09/11/17 21:39 Lidoderm Patch Removal MC 1 each DAILY@2200 JOSIE Administration Naltrexone HCl 50 mg 09/04/17 16:45 09/11/17 10:04 Revia - PO 50 mg DAILY JOSIE Administration Nicotine 21 mg 08/27/17 16:45 09/11/17 10:05 Nicoderm Patch - TD Not Given DAILY JOSIE Nicotine Polacrilex 4 mg 08/27/17 15:50 09/11/17 10:05 Nicorette Gum - BUC 4 mg Q2H PRN Administration NICOTINE REPLACEMENT RX Multivit/Folic Acid/Iron 1 tab 08/28/17 10:00 09/11/17 10:05 Vitamins (Sjr) - PO 1 tab DAILY JOSIE Administration Pseudoephedrine/Triprolidine 1 combo 08/27/17 15:50 09/09/17 21:23 Actifed - PO 1 combo TID PRN Administration NASAL CONGESTION Tamsulosin HCl 0.4 mg 08/28/17 10:00 09/11/17 10:05 Flomax - PO 0.4 mg DAILY JOSIE Administration Thiamine HCl 100 mg 08/27/17 22:00 09/11/17 21:39 Vitamin B1 - PO 100 mg HS JOSIE Administration Current Side Effect: No Lab tests ordered: Yes Lab tests reviewed: Yes Provider note:: Patient will complete this program on 09/13/17. He has met his treatment goals and will continue to address his issues in outpatient treatment at [facility]. 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 He responded well to Belsomra 10 mg po HS prn for insomnia and Naltrexone 50 mg po daily. He has enough supply of Naltrexone till he sees his psychiatrist. He is stable for discharge on 09/13/17 Total face to face time:: 35 Mental Status Exam - Mental Status Exam Alert and Oriented to: Time, Place, Person Cognitive Function: Fair Mood: Hopeful, Euthymic Affect: Appropriate Patient Behavior: Cooperative Speech Pattern: Clear Voice Loudness: Normal Thought Process: Intact, Goal Oriented Thought Disorder: Not Present Hallucinations: Denies Suicidal Ideation: Denies Homicidal Ideation: Denies Insight/Judgement: Fair Appetite: Good Muscle strength/Tone: Normal Gait/Station: Normal Psychiatric Treatment Plan - Problem List (1) Alcohol dependence Current Visit: Yes (2) Nicotine dependence Current Visit: Yes (3) Alcohol-induced sleep disorder Current Visit: Yes (4) BPH (benign prostatic hyperplasia) Current Visit: No (5) Hepatitis C Current Visit: No (6) Herniated disc Current Visit: No (7) Pain in both knees Current Visit: No (8) Asthma Current Visit: No Qualifiers: Asthma severity: mild Asthma complication type: uncomplicated (9) Superficial bruising of finger Current Visit: No Qualifiers: Encounter type: initial encounter Laterality: left (10) Use of cane as ambulatory aid Current Visit: No Initial treatment plan: Patient will be discharged tomorrow and referred to [facility] for outpatient treatment
[2017-09-12] MEDS: TAMSULOSIN HCL 0.4 MG CAP.ER.24H (FP) PO SCH (09:59)
[2017-09-12] MEDS: NICOTINE 21 MG/24 HOURS TOPICAL PATCH TD SCH (09:59)
[2017-09-12] MEDS: NALTREXONE HCL 50 MG TABLET PO SCH (09:59)
[2017-09-12] MEDS: PRENATAL VITAMINS W/ FOLIC ACID TABLET (FP) PO SCH (09:59)
[2017-09-12] MEDS: NICOTINE POLACRILEX 4 MG GUM BUC PRN (09:59)
[2017-09-12] MEDS: LIDOCAINE 5% TOPICAL PATCH TP SCH (09:59)
[2017-09-12] MEDS: THIAMINE HCL 100 MG TABLET (FP) PO SCH (21:38)
[2017-09-12] MEDS: LIDOCAINE PATCH REMOVAL MC SCH (21:39)
[2017-09-12] MEDS ORDERED: SUVOREXANT 10 MG TABLET PO PRN (22:00)
[2017-09-13 07:05] VITALS: BP 124/76; PULSE 107; TEMP 97.9
[2017-09-13] MEDS: PRENATAL VITAMINS W/ FOLIC ACID TABLET (FP) PO SCH (09:09)
[2017-09-13] MEDS: NICOTINE 21 MG/24 HOURS TOPICAL PATCH TD SCH (09:09)
[2017-09-13] MEDS: TAMSULOSIN HCL 0.4 MG CAP.ER.24H (FP) PO SCH (09:09)
[2017-09-13] MEDS: NALTREXONE HCL 50 MG TABLET PO SCH (09:09)
[2017-09-13] MEDS: LIDOCAINE 5% TOPICAL PATCH TP SCH (09:09)
== END 2017-09-13 10:15 | disposition home or self-care (01) | DRG 772 ==
LOC: YASAS 14:21 → Y3W 14:23
PROVIDERS: ADMIT Psychiatry & Neurology Psychiatry; ATTEND Psychiatry & Neurology Psychiatry
PROC: HZ42ZZZ Group Counseling for Substance Abuse Treatment, Cognitive-Behavioral (ICD-10-PCS; principal; 2017-08-27)
DX: F10.20 Alcohol dependence, uncomplicated (principal); F17.210 Nicotine dependence, cigarettes, uncomplicated; F10.282 Alcohol dependence with alcohol-induced sleep disorder; B18.2 Chronic viral hepatitis C; M13.862 Other specified arthritis, left knee; M13.861 Other specified arthritis, right knee; N40.0 Benign prostatic hyperplasia without lower urinary tract symptoms; M51.26 Other intervertebral disc displacement, lumbar region; R26.89 Other abnormalities of gait and mobility; Z99.89 Dependence on other enabling machines and devices

== ENCOUNTER 2022-04-14 13:43 | Inpatient (IN) | payer OTHER ==
[2022-04-14 14:52] VITALS: BMI 31.1
[2022-04-14] MEDS ORDERED: MAG HYDROX/AL HYDROX/SIMETH 30 ML UNIT-DOSE CUP PO PRN (18:16)
[2022-04-14] MEDS ORDERED: MAGNESIUM CITRATE 300 ML BOTTLE PO PRN (18:16)
[2022-04-14] MEDS ORDERED: guaiFENesin 200 MG/10 ML 10 ML UNIT-DOSE CUPS PO PRN (18:16)
[2022-04-14] MEDS ORDERED: chlordiazePOXIDE HCL 25 MG CAPSULE PO PRN (18:16)
[2022-04-14] MEDS ORDERED: NICOTINE 10 MG CARTRIDGE (INHALER) IH PRN (18:16)
[2022-04-14] MEDS ORDERED: ACETAMINOPHEN 325 MG TABLET (FP) PO PRN (18:16)
[2022-04-14] MEDS ORDERED: MAGNESIUM HYDROX 2400MG/30ML ORAL SUSPENSION 30 ML CUP PO PRN (18:16)
[2022-04-14] MEDS ORDERED: P-EPHED 60MG/TRIPROLIDI 2.5MG TABLET PO PRN (18:16)
[2022-04-14] MEDS ORDERED: LOPERAMIDE HCL 2 MG CAPSULE PO PRN (18:16)
[2022-04-14] MEDS: chlordiazePOXIDE HCL 25 MG CAPSULE PO SCH (19:19)
[2022-04-14] MEDS: LORazepam 1 MG TABLET PO PRN (19:26)
[2022-04-14] MEDS: LORazepam 2 MG TABLET PO SCH ×3 (19:35→22:13)
[2022-04-14] MEDS: IBUPROFEN 400 MG TABLET (FP) PO PRN (19:50)
[2022-04-14] MEDS: MELATONIN 5 MG TABLETS PO SCH (22:13)
[2022-04-14] MEDS: THIAMINE HCL 100 MG TABLET (FP) PO SCH (22:13)
[2022-04-15] MEDS: LORazepam 2 MG TABLET PO SCH ×4 (05:29→22:28)
[2022-04-15 10:10] LABS: HEMATOCRIT 36.7 % (35.4-49); MCH 31.3 pg (25.7-33.7); MCHC 32.7 g/dl (32.0-35.9); MEAN CELL VOLUME 95.9 fl (80-96); MEAN PLT VOLUME 8.5 fl (7.5-11.1); PLATELET COUNT 104 10^3/uL (134-434); RBC 3.82 M/mm3 (4.00-5.60); RDW 17.9 % (11.9-15.9); WHITE BLOOD COUNT 6.2 K/mm3 (4.0-10.0)
[2022-04-15 10:14] LABS: ALBUMIN 2.7 g/dl (3.4-5.0); CALCIUM 8.3 mg/dL (8.5-10.1)
[2022-04-15] MEDS: PRENATAL VITAMINS W/ FOLIC ACID TABLET (FP) PO SCH (10:14)
[2022-04-15 10:15] LABS: BLOOD UREA NITROGEN 3.9 mg/dL (7-18)
[2022-04-15 10:17] LABS: CREATININE 0.6 mg/dL (0.55-1.3)
[2022-04-15 10:20] LABS: BILIRUBIN,TOTAL 2.4 mg/dL (0.2-1); TOT PROT 6.6 g/dl (6.4-8.2)
[2022-04-15] MEDS ORDERED: POTASSIUM CHLORIDE TABS 20 MEQ TABLET.ER (FP) PO ONE ×2 (11:40→17:00)
[2022-04-15] MEDS: ALBUTEROL SO4 HFA INHALER IH PRN (16:54)
[2022-04-15] MEDS: MELATONIN 5 MG TABLETS PO SCH (22:28)
[2022-04-15] MEDS: hydrOXYzine PAMOATE 25 MG CAPSULE (FP) PO PRN (22:28)
[2022-04-15] MEDS: THIAMINE HCL 100 MG TABLET (FP) PO SCH (22:28)
[2022-04-16] MEDS ORDERED: chlordiazePOXIDE HCL 25 MG CAPSULE PO SCH (05:00)
[2022-04-16] MEDS: LORazepam 1 MG TABLET PO SCH ×4 (05:25→22:38)
[2022-04-16] MEDS: PRENATAL VITAMINS W/ FOLIC ACID TABLET (FP) PO SCH (10:04)
[2022-04-16] MEDS: ALBUTEROL SO4 HFA INHALER IH PRN (10:05)
[2022-04-16] MEDS: LACTULOSE 20 GM/30 ML UDC (FOR ORAL USE ONLY) PO SCH ×3 (13:27→22:38)
[2022-04-16] MEDS: hydrOXYzine PAMOATE 25 MG CAPSULE (FP) PO PRN ×2 (14:12→22:38)
[2022-04-16] MEDS: LORazepam 1 MG TABLET PO PRN (14:13)
[2022-04-16] MEDS: MELATONIN 5 MG TABLETS PO SCH (22:38)
[2022-04-16] MEDS: THIAMINE HCL 100 MG TABLET (FP) PO SCH (22:38)
[2022-04-17] MEDS ORDERED: LORazepam 0.5 MG TABLET PO PRN
[2022-04-17] MEDS ORDERED: chlordiazePOXIDE HCL 10 MG CAPSULE PO PRN
[2022-04-17] MEDS ORDERED: chlordiazePOXIDE HCL 10 MG CAPSULE PO SCH (05:00)
[2022-04-17] MEDS: LORazepam 0.5 MG TABLET PO SCH ×4 (06:03→22:35)
[2022-04-17] MEDS: LACTULOSE 20 GM/30 ML UDC (FOR ORAL USE ONLY) PO SCH ×4 (10:39→22:35)
[2022-04-17] MEDS: PRENATAL VITAMINS W/ FOLIC ACID TABLET (FP) PO SCH (10:39)
[2022-04-17] MEDS: TAMSULOSIN HCL 0.4 MG CAP PO SCH (12:50)
[2022-04-17] MEDS: ALBUTEROL SO4 HFA INHALER IH PRN (22:35)
[2022-04-17] MEDS: THIAMINE HCL 100 MG TABLET (FP) PO SCH (22:35)
[2022-04-17] MEDS: MELATONIN 5 MG TABLETS PO SCH (22:35)
[2022-04-17] MEDS: IBUPROFEN 400 MG TABLET (FP) PO PRN (22:38)
[2022-04-18] MEDS ORDERED: chlordiazePOXIDE HCL 10 MG CAPSULE PO SCH (05:00)
[2022-04-18] MEDS ORDERED: LORazepam 0.5 MG TABLET PO ONE (05:00)
[2022-04-18] MEDS: TAMSULOSIN HCL 0.4 MG CAP PO SCH (09:01)
[2022-04-18] MEDS: PRENATAL VITAMINS W/ FOLIC ACID TABLET (FP) PO SCH (10:09)
[2022-04-18] MEDS: LACTULOSE 20 GM/30 ML UDC (FOR ORAL USE ONLY) PO SCH ×4 (10:09→22:21)
[2022-04-18 17:51] LABS: ALBUMIN 2.5 g/dl (3.4-5.0); BLOOD UREA NITROGEN 6.8 mg/dL (7-18); CALCIUM 8.5 mg/dL (8.5-10.1)
[2022-04-18 17:54] LABS: CREATININE 0.7 mg/dL (0.55-1.3)
[2022-04-18 17:56] LABS: BILIRUBIN,TOTAL 1.6 mg/dL (0.2-1)
[2022-04-18] MEDS: THIAMINE HCL 100 MG TABLET (FP) PO SCH (22:22)
[2022-04-18] MEDS: MELATONIN 5 MG TABLETS PO SCH (22:22)
[2022-04-19] MEDS ORDERED: chlordiazePOXIDE HCL 10 MG CAPSULE PO ONE (05:00)
[2022-04-19] MEDS: TAMSULOSIN HCL 0.4 MG CAP PO SCH (09:19)
[2022-04-19] MEDS: LACTULOSE 20 GM/30 ML UDC (FOR ORAL USE ONLY) PO SCH ×4 (09:19→22:17)
[2022-04-19] MEDS: PRENATAL VITAMINS W/ FOLIC ACID TABLET (FP) PO SCH (09:20)
[2022-04-19] MEDS: POTASSIUM CHLORIDE ORAL LIQUID 20 MEQ/15 ML PO SCH ×2 (10:02→22:17)
[2022-04-19] MEDS: THIAMINE HCL 100 MG TABLET (FP) PO SCH (22:17)
[2022-04-19] MEDS: MELATONIN 5 MG TABLETS PO SCH (22:17)
[2022-04-19] MEDS: ALBUTEROL SO4 HFA INHALER IH PRN (22:20)
[2022-04-19 23:17] LABS: EPI CELLS 3 /uL (0-25.1); HYALINE CASTS 0 /uL (0-3.1); URINE APPEARANCE CLEAR; URINE BACTERIA 44 /uL (0-1359); URINE BILIRUBIN NEGATIVE (NEGATIVE); URINE COLOR DK YELLOW; URINE GLUCOSE (UA) NEGATIVE (NEGATIVE); URINE KETONE 1+ (NEGATIVE); URINE LEUK ESTERASE NEGATIVE (NEGATIVE); URINE NITRITE NEGATIVE (NEGATIVE); URINE PROTEIN 1+ (NEGATIVE); URINE WBC 3 /uL (0-25.8)
[2022-04-20] MEDS: TAMSULOSIN HCL 0.4 MG CAP PO SCH (10:07)
[2022-04-20] MEDS: POTASSIUM CHLORIDE ORAL LIQUID 20 MEQ/15 ML PO SCH (10:07)
[2022-04-20] MEDS: PRENATAL VITAMINS W/ FOLIC ACID TABLET (FP) PO SCH (10:08)
[2022-04-20] MEDS: LACTULOSE 20 GM/30 ML UDC (FOR ORAL USE ONLY) PO SCH ×3 (10:08→17:36)
[2022-04-20 16:57] VITALS: BP 105/67; PULSE 97; RESP 16; TEMP 98.2
== END 2022-04-20 18:15 | disposition other institution (70) | DRG 775 ==
LOC: YASAS 13:43 → Y3N 19:02
PROVIDERS: ADMIT Allergy & Immunology; ATTEND Surgery
PROC: HZ2ZZZZ Detoxification Services for Substance Abuse Treatment (ICD-10-PCS; principal; 2022-04-14)
DX: F10.230 Alcohol dependence with withdrawal, uncomplicated (principal); F17.210 Nicotine dependence, cigarettes, uncomplicated; F10.282 Alcohol dependence with alcohol-induced sleep disorder; I10 Essential (primary) hypertension; J45.909 Unspecified asthma, uncomplicated; E87.6 Hypokalemia; M17.0 Bilateral primary osteoarthritis of knee; M54.50 Low back pain, unspecified; N40.0 Benign prostatic hyperplasia without lower urinary tract symptoms; R73.9 Hyperglycemia, unspecified; R79.89 Other specified abnormal findings of blood chemistry; Z99.89 Dependence on other enabling machines and devices
CPT/HCPCS: 36415; 80053; 81003; 82140; 82947; 82962; 83036; 84132; 85027; 86780; 93005; 93010; C9803-CS; U0003; U0005

== ENCOUNTER 2022-04-20 18:31 | Inpatient (IN) | payer OTHER ==
[2022-04-20] MEDS ORDERED: LOPERAMIDE HCL 2 MG CAPSULE PO PRN (19:09)
[2022-04-20] MEDS ORDERED: MAGNESIUM CITRATE 300 ML BOTTLE PO PRN (19:09)
[2022-04-20] MEDS ORDERED: BENZOCAINE/MENTHOL (CHLORASEPTIC ) LOZENGE MM PRN (19:09)
[2022-04-20] MEDS ORDERED: guaiFENesin 200 MG/10 ML 10 ML UNIT-DOSE CUPS PO PRN (19:09)
[2022-04-20] MEDS ORDERED: ACETAMINOPHEN 325 MG TABLET (FP) PO PRN (19:09)
[2022-04-20] MEDS ORDERED: MAGNESIUM HYDROX 2400MG/30ML ORAL SUSPENSION 30 ML CUP PO PRN (19:09)
[2022-04-20] MEDS ORDERED: P-EPHED 60MG/TRIPROLIDI 2.5MG TABLET PO PRN (19:09)
[2022-04-20] MEDS ORDERED: MAG HYDROX/AL HYDROX/SIMETH 30 ML UNIT-DOSE CUP PO PRN (19:09)
[2022-04-20] MEDS: THIAMINE HCL 100 MG TABLET (FP) PO SCH (22:00)
[2022-04-20] MEDS: MELATONIN 5 MG TABLETS PO SCH (22:00)
[2022-04-20] MEDS: LACTULOSE 20 GM/30 ML UDC (FOR ORAL USE ONLY) PO SCH (22:00)
[2022-04-21] MEDS: IBUPROFEN 400 MG TABLET (FP) PO PRN (06:55)
[2022-04-21] MEDS: TAMSULOSIN HCL 0.4 MG CAP PO SCH (09:22)
[2022-04-21] MEDS: LACTULOSE 20 GM/30 ML UDC (FOR ORAL USE ONLY) PO SCH ×4 (09:23→21:17)
[2022-04-21] MEDS: PRENATAL VITAMINS W/ FOLIC ACID TABLET (FP) PO SCH (09:23)
[2022-04-21] MEDS: NICOTINE 10 MG CARTRIDGE (INHALER) IH PRN (09:23)
[2022-04-21] MEDS ORDERED: NICOTINE 7 MG/24 HOURS TOPICAL PATCH TD SCH (10:00)
[2022-04-21] MEDS ORDERED: NICOTINE 7 MG/24 HOURS TOPICAL PATCH TD PRN (10:46)
[2022-04-21] MEDS: MELATONIN 5 MG TABLETS PO SCH (21:17)
[2022-04-21] MEDS: THIAMINE HCL 100 MG TABLET (FP) PO SCH (21:17)
[2022-04-21] MEDS: hydrOXYzine PAMOATE 25 MG CAPSULE (FP) PO PRN (21:18)
[2022-04-22] MEDS: PRENATAL VITAMINS W/ FOLIC ACID TABLET (FP) PO SCH (09:44)
[2022-04-22] MEDS: LACTULOSE 20 GM/30 ML UDC (FOR ORAL USE ONLY) PO SCH ×4 (09:44→22:52)
[2022-04-22] MEDS: TAMSULOSIN HCL 0.4 MG CAP PO SCH (09:44)
[2022-04-22] MEDS: THIAMINE HCL 100 MG TABLET (FP) PO SCH (21:08)
[2022-04-22] MEDS: MELATONIN 5 MG TABLETS PO SCH (21:08)
[2022-04-22] MEDS: hydrOXYzine PAMOATE 25 MG CAPSULE (FP) PO PRN (21:09)
[2022-04-23] MEDS: TAMSULOSIN HCL 0.4 MG CAP PO SCH (09:58)
[2022-04-23] MEDS: PRENATAL VITAMINS W/ FOLIC ACID TABLET (FP) PO SCH (09:59)
[2022-04-23] MEDS: LACTULOSE 20 GM/30 ML UDC (FOR ORAL USE ONLY) PO SCH ×4 (09:59→21:20)
[2022-04-23] MEDS: IBUPROFEN 400 MG TABLET (FP) PO PRN (18:15)
[2022-04-23] MEDS: ALBUTEROL SO4 HFA INHALER IH PRN (21:19)
[2022-04-23] MEDS: NICOTINE 10 MG CARTRIDGE (INHALER) IH PRN (21:19)
[2022-04-23] MEDS: hydrOXYzine PAMOATE 25 MG CAPSULE (FP) PO PRN (21:20)
[2022-04-23] MEDS: MELATONIN 5 MG TABLETS PO SCH (21:20)
[2022-04-23] MEDS: THIAMINE HCL 100 MG TABLET (FP) PO SCH (21:20)
[2022-04-24] MEDS: LACTULOSE 20 GM/30 ML UDC (FOR ORAL USE ONLY) PO SCH ×4 (09:09→21:14)
[2022-04-24] MEDS: PRENATAL VITAMINS W/ FOLIC ACID TABLET (FP) PO SCH (09:09)
[2022-04-24] MEDS: TAMSULOSIN HCL 0.4 MG CAP PO SCH (09:09)
[2022-04-24] MEDS: ALBUTEROL SO4 HFA INHALER IH PRN (21:13)
[2022-04-24] MEDS: THIAMINE HCL 100 MG TABLET (FP) PO SCH (21:14)
[2022-04-24] MEDS: MELATONIN 5 MG TABLETS PO SCH (21:14)
[2022-04-24] MEDS: hydrOXYzine PAMOATE 25 MG CAPSULE (FP) PO PRN (21:14)
[2022-04-25] MEDS: TAMSULOSIN HCL 0.4 MG CAP PO SCH (09:57)
[2022-04-25] MEDS: LACTULOSE 20 GM/30 ML UDC (FOR ORAL USE ONLY) PO SCH ×4 (09:57→21:11)
[2022-04-25] MEDS: PRENATAL VITAMINS W/ FOLIC ACID TABLET (FP) PO SCH (09:57)
[2022-04-25] MEDS: THIAMINE HCL 100 MG TABLET (FP) PO SCH (21:10)
[2022-04-25] MEDS: MELATONIN 5 MG TABLETS PO SCH (21:10)
[2022-04-25] MEDS: hydrOXYzine PAMOATE 25 MG CAPSULE (FP) PO PRN (21:11)
[2022-04-26] MEDS: TAMSULOSIN HCL 0.4 MG CAP PO SCH (09:30)
[2022-04-26] MEDS: PRENATAL VITAMINS W/ FOLIC ACID TABLET (FP) PO SCH (09:43)
[2022-04-26] MEDS: LACTULOSE 20 GM/30 ML UDC (FOR ORAL USE ONLY) PO SCH ×4 (09:43→21:23)
[2022-04-26] MEDS: THIAMINE HCL 100 MG TABLET (FP) PO SCH (21:22)
[2022-04-26] MEDS: MELATONIN 5 MG TABLETS PO SCH (21:22)
[2022-04-26] MEDS: hydrOXYzine PAMOATE 25 MG CAPSULE (FP) PO PRN (21:22)
[2022-04-27] MEDS: TAMSULOSIN HCL 0.4 MG CAP PO SCH (09:47)
[2022-04-27] MEDS: LACTULOSE 20 GM/30 ML UDC (FOR ORAL USE ONLY) PO SCH ×4 (09:47→21:02)
[2022-04-27] MEDS: PRENATAL VITAMINS W/ FOLIC ACID TABLET (FP) PO SCH (09:47)
[2022-04-27] MEDS: THIAMINE HCL 100 MG TABLET (FP) PO SCH (21:02)
[2022-04-27] MEDS: MELATONIN 5 MG TABLETS PO SCH (21:02)
[2022-04-27] MEDS: hydrOXYzine PAMOATE 25 MG CAPSULE (FP) PO PRN (21:03)
[2022-04-28] MEDS: TAMSULOSIN HCL 0.4 MG CAP PO SCH (09:03)
[2022-04-28] MEDS: PRENATAL VITAMINS W/ FOLIC ACID TABLET (FP) PO SCH (09:55)
[2022-04-28] MEDS: LACTULOSE 20 GM/30 ML UDC (FOR ORAL USE ONLY) PO SCH ×4 (09:55→21:08)
[2022-04-28] MEDS: ALBUTEROL SO4 HFA INHALER IH PRN (21:08)
[2022-04-28] MEDS: THIAMINE HCL 100 MG TABLET (FP) PO SCH (21:08)
[2022-04-28] MEDS: hydrOXYzine PAMOATE 25 MG CAPSULE (FP) PO PRN (21:08)
[2022-04-28] MEDS: MELATONIN 5 MG TABLETS PO SCH (21:08)
[2022-04-29] MEDS: TAMSULOSIN HCL 0.4 MG CAP PO SCH (09:31)
[2022-04-29] MEDS: PRENATAL VITAMINS W/ FOLIC ACID TABLET (FP) PO SCH (09:31)
[2022-04-29] MEDS: LACTULOSE 20 GM/30 ML UDC (FOR ORAL USE ONLY) PO SCH ×4 (09:31→21:07)
[2022-04-29] MEDS: MELATONIN 5 MG TABLETS PO SCH (21:07)
[2022-04-29] MEDS: hydrOXYzine PAMOATE 25 MG CAPSULE (FP) PO PRN (21:07)
[2022-04-29] MEDS: THIAMINE HCL 100 MG TABLET (FP) PO SCH (21:07)
[2022-04-30] MEDS: TAMSULOSIN HCL 0.4 MG CAP PO SCH (09:30)
[2022-04-30] MEDS: LACTULOSE 20 GM/30 ML UDC (FOR ORAL USE ONLY) PO SCH ×4 (09:50→21:16)
[2022-04-30] MEDS: PRENATAL VITAMINS W/ FOLIC ACID TABLET (FP) PO SCH (09:51)
[2022-04-30] MEDS: THIAMINE HCL 100 MG TABLET (FP) PO SCH (21:15)
[2022-04-30] MEDS: hydrOXYzine PAMOATE 25 MG CAPSULE (FP) PO PRN (21:15)
[2022-04-30] MEDS: MELATONIN 5 MG TABLETS PO SCH (21:15)
[2022-05-01] MEDS: TAMSULOSIN HCL 0.4 MG CAP PO SCH (08:50)
[2022-05-01] MEDS: PRENATAL VITAMINS W/ FOLIC ACID TABLET (FP) PO SCH (09:54)
[2022-05-01] MEDS: LACTULOSE 20 GM/30 ML UDC (FOR ORAL USE ONLY) PO SCH ×4 (09:54→21:07)
[2022-05-01] MEDS: ALBUTEROL SO4 HFA INHALER IH PRN (21:07)
[2022-05-01] MEDS: THIAMINE HCL 100 MG TABLET (FP) PO SCH (21:08)
[2022-05-01] MEDS: MELATONIN 5 MG TABLETS PO SCH (21:08)
[2022-05-01] MEDS: hydrOXYzine PAMOATE 25 MG CAPSULE (FP) PO PRN (21:08)
[2022-05-02] MEDS: TAMSULOSIN HCL 0.4 MG CAP PO SCH (09:04)
[2022-05-02] MEDS: IBUPROFEN 400 MG TABLET (FP) PO PRN (09:07)
[2022-05-02] MEDS: LACTULOSE 20 GM/30 ML UDC (FOR ORAL USE ONLY) PO SCH ×4 (09:48→21:14)
[2022-05-02] MEDS: PRENATAL VITAMINS W/ FOLIC ACID TABLET (FP) PO SCH (09:48)
[2022-05-02] MEDS: ALBUTEROL SO4 HFA INHALER IH PRN (21:14)
[2022-05-02] MEDS: THIAMINE HCL 100 MG TABLET (FP) PO SCH (21:15)
[2022-05-02] MEDS: hydrOXYzine PAMOATE 25 MG CAPSULE (FP) PO PRN (21:15)
[2022-05-02] MEDS: MELATONIN 5 MG TABLETS PO SCH (21:15)
[2022-05-03 06:41] VITALS: BP 120/80; PULSE 100; RESP 18; TEMP 97.1
[2022-05-03] MEDS: hydrOXYzine PAMOATE 25 MG CAPSULE (FP) PO PRN (10:25)
[2022-05-03] MEDS: PRENATAL VITAMINS W/ FOLIC ACID TABLET (FP) PO SCH (10:25)
[2022-05-03] MEDS: LACTULOSE 20 GM/30 ML UDC (FOR ORAL USE ONLY) PO SCH ×4 (10:25→21:13)
[2022-05-03] MEDS: TAMSULOSIN HCL 0.4 MG CAP PO SCH (10:25)
[2022-05-03] MEDS: MELATONIN 5 MG TABLETS PO SCH (21:13)
[2022-05-03] MEDS: THIAMINE HCL 100 MG TABLET (FP) PO SCH (21:13)
[2022-05-04] MEDS: ALBUTEROL SO4 HFA INHALER IH PRN (09:28)
[2022-05-04] MEDS: TAMSULOSIN HCL 0.4 MG CAP PO SCH (09:28)
[2022-05-04] MEDS: LACTULOSE 20 GM/30 ML UDC (FOR ORAL USE ONLY) PO SCH (09:28)
[2022-05-04] MEDS: PRENATAL VITAMINS W/ FOLIC ACID TABLET (FP) PO SCH (09:28)
== END 2022-05-04 09:30 | disposition home or self-care (01) | DRG 772 ==
LOC: YASAS 18:31 → Y3E 18:32
PROVIDERS: ADMIT Allergy & Immunology; ATTEND Surgery
PROC: HZ42ZZZ Group Counseling for Substance Abuse Treatment, Cognitive-Behavioral (ICD-10-PCS; principal; 2022-04-20)
DX: F10.20 Alcohol dependence, uncomplicated (principal); F17.210 Nicotine dependence, cigarettes, uncomplicated; J45.909 Unspecified asthma, uncomplicated; M17.0 Bilateral primary osteoarthritis of knee; M19.041 Primary osteoarthritis, right hand; M19.042 Primary osteoarthritis, left hand; M51.26 Other intervertebral disc displacement, lumbar region; N40.0 Benign prostatic hyperplasia without lower urinary tract symptoms; R73.9 Hyperglycemia, unspecified; R79.89 Other specified abnormal findings of blood chemistry; Z86.19 Personal history of other infectious and parasitic diseases; Z99.89 Dependence on other enabling machines and devices
CPT/HCPCS: 82140; 82962

== ENCOUNTER 2022-10-16 15:12 | Inpatient (IN) | payer OTHER ==
[2022-10-16 18:50] VITALS: BMI 30.2
[2022-10-16] MEDS ORDERED: DICYCLOMINE HCL 10 MG CAPSULE PO PRN (21:03)
[2022-10-16] MEDS ORDERED: POLYETHYLENE GLYCOL (HEALTHYLAX) 3350 17 GM PACKET PO PRN (21:03)
[2022-10-16] MEDS ORDERED: NICOTINE 10 MG CARTRIDGE (INHALER) IH PRN (21:03)
[2022-10-16] MEDS ORDERED: NICOTINE POLACRILEX 2 MG GUM BUC PRN (21:03)
[2022-10-16] MEDS ORDERED: BENZONATATE 200 MG CAPSULE PO PRN (21:03)
[2022-10-16] MEDS ORDERED: ONDANSETRON *ODT* 4 MG TABLET SL PRN (21:03)
[2022-10-16] MEDS ORDERED: MAGNESIUM HYDROX 2400MG/30ML ORAL SUSPENSION 30 ML CUP PO PRN (21:03)
[2022-10-16] MEDS ORDERED: MAG HYDROX/AL HYDROX/SIMETH 30 ML UNIT-DOSE CUP PO PRN (21:03)
[2022-10-16] MEDS ORDERED: guaiFENesin 600 MG TABLET.ER (FP) PO PRN (21:03)
[2022-10-16] MEDS ORDERED: IBUPROFEN 400 MG TABLET (FP) PO PRN (21:03)
[2022-10-16] MEDS ORDERED: LOPERAMIDE HCL 2 MG CAPSULE PO PRN (21:03)
[2022-10-16] MEDS ORDERED: BISMUTH SUBSALICYLATE 524 MG/30 ML PO PRN (21:03)
[2022-10-16] MEDS ORDERED: BENZOCAINE/MENTHOL (CHLORASEPTIC ) LOZENGE MM PRN (21:03)
[2022-10-16] MEDS ORDERED: P-EPHED 60MG/TRIPROLIDI 2.5MG TABLET PO PRN (21:03)
[2022-10-16] MEDS ORDERED: IBUPROFEN 600 MG TABLET (FP) PO ONE (21:35)
[2022-10-16] MEDS ORDERED: diazePAM 5 MG TABLET ONE (21:36)
[2022-10-16] MEDS: diazePAM 5 MG TABLET PO PRN (21:39)
[2022-10-16] MEDS: IBUPROFEN 600 MG TABLET (FP) PO PRN (21:41)
[2022-10-16] MEDS ORDERED: ALBUTEROL SO4 HFA INHALER IH PRN (23:34)
[2022-10-16] MEDS: diazePAM 5 MG TABLET PO SCH (23:58)
[2022-10-16] MEDS: THIAMINE HCL 100 MG TABLET (FP) PO SCH (23:58)
[2022-10-17] MEDS: diazePAM 5 MG TABLET PO SCH ×4 (05:15→22:18)
[2022-10-17] MEDS: IBUPROFEN 600 MG TABLET (FP) PO PRN ×2 (05:16→17:25)
[2022-10-17] MEDS: INSULIN SLIDING SCALE (NOVOLOG) 1 VIAL SQ SCH ×2 (06:16→17:27)
[2022-10-17] MEDS: PRENATAL VITAMINS W/ FOLIC ACID TABLET (FP) PO SCH (10:20)
[2022-10-17] MEDS: hydrOXYzine PAMOATE 25 MG CAPSULE (FP) PO PRN (10:21)
[2022-10-17 11:34] LABS: HEMOGLOBIN 14.2 GM/dL (11.7-16.9); MCH 35.9 pg (25.7-33.7); MCHC 35.6 g/dl (32.0-35.9); MEAN PLT VOLUME 8.3 fl (7.5-11.1); PLATELET COUNT 153 10^3/uL (134-434); RBC 3.96 M/mm3 (4.00-5.60); RDW 14.3 % (11.9-15.9); WHITE BLOOD COUNT 6.4 K/mm3 (4.0-10.0)
[2022-10-17 11:44] LABS: CALCIUM 9.3 mg/dL (8.5-10.1)
[2022-10-17 11:45] LABS: CREATININE 0.6 mg/dL (0.55-1.3)
[2022-10-17 11:46] LABS: BILIRUBIN,TOTAL 2.8 mg/dL (0.2-1)
[2022-10-17 11:47] LABS: TOT PROT 7.3 g/dl (6.4-8.2)
[2022-10-17] MEDS: MELATONIN 5 MG TABLETS PO PRN (22:17)
[2022-10-17] MEDS: THIAMINE HCL 100 MG TABLET (FP) PO SCH (22:18)
[2022-10-18] MEDS: diazePAM 5 MG TABLET PO SCH ×3 (05:18→22:30)
[2022-10-18] MEDS: IBUPROFEN 600 MG TABLET (FP) PO PRN ×2 (05:21→17:26)
[2022-10-18] MEDS: INSULIN SLIDING SCALE (NOVOLOG) 1 VIAL SQ SCH ×2 (06:07→16:40)
[2022-10-18] MEDS: PRENATAL VITAMINS W/ FOLIC ACID TABLET (FP) PO SCH (10:26)
[2022-10-18] MEDS: diazePAM 5 MG TABLET PO PRN (10:27)
[2022-10-18 11:37] LABS: CALCIUM 8.6 mg/dL (8.5-10.1)
[2022-10-18 11:38] LABS: ALBUMIN 2.4 g/dl (3.4-5.0)
[2022-10-18 11:41] LABS: CREATININE 0.4 mg/dL (0.55-1.3)
[2022-10-18 11:43] LABS: BILIRUBIN,TOTAL 1.8 mg/dL (0.2-1)
[2022-10-18] MEDS: TAMSULOSIN HCL 0.4 MG CAP PO SCH (22:29)
[2022-10-18] MEDS: MELATONIN 5 MG TABLETS PO PRN (22:29)
[2022-10-18] MEDS: THIAMINE HCL 100 MG TABLET (FP) PO SCH (22:30)
[2022-10-19] MEDS: diazePAM 5 MG TABLET PO SCH ×2 (05:26→17:42)
[2022-10-19] MEDS: IBUPROFEN 600 MG TABLET (FP) PO PRN (05:28)
[2022-10-19] MEDS: INSULIN SLIDING SCALE (NOVOLOG) 1 VIAL SQ SCH ×2 (07:27→17:06)
[2022-10-19] MEDS: hydrOXYzine PAMOATE 25 MG CAPSULE (FP) PO PRN (10:36)
[2022-10-19] MEDS: PRENATAL VITAMINS W/ FOLIC ACID TABLET (FP) PO SCH (10:36)
[2022-10-19] MEDS: diazePAM 5 MG TABLET PO PRN (10:37)
[2022-10-19] MEDS: LACTULOSE 20 GM/30 ML UDC (FOR ORAL USE ONLY) PO SCH ×2 (17:41→21:19)
[2022-10-19] MEDS: TAMSULOSIN HCL 0.4 MG CAP PO SCH (21:18)
[2022-10-19] MEDS: THIAMINE HCL 100 MG TABLET (FP) PO SCH (21:19)
[2022-10-19] MEDS: MELATONIN 5 MG TABLETS PO PRN (21:23)
[2022-10-20] MEDS ORDERED: diazePAM 5 MG TABLET PO ONE (06:00)
[2022-10-20] MEDS: INSULIN SLIDING SCALE (NOVOLOG) 1 VIAL SQ SCH ×2 (06:22→16:29)
[2022-10-20] MEDS: PRENATAL VITAMINS W/ FOLIC ACID TABLET (FP) PO SCH (10:36)
[2022-10-20] MEDS: hydrOXYzine PAMOATE 25 MG CAPSULE (FP) PO PRN ×2 (10:36→22:11)
[2022-10-20] MEDS: LACTULOSE 20 GM/30 ML UDC (FOR ORAL USE ONLY) PO SCH ×4 (10:36→22:10)
[2022-10-20 20:56] VITALS: RESP 18
[2022-10-20] MEDS: MELATONIN 5 MG TABLETS PO PRN (22:10)
[2022-10-20] MEDS: TAMSULOSIN HCL 0.4 MG CAP PO SCH (22:10)
[2022-10-20] MEDS: THIAMINE HCL 100 MG TABLET (FP) PO SCH (22:10)
[2022-10-20] MEDS: IBUPROFEN 600 MG TABLET (FP) PO PRN (22:11)
[2022-10-21] MEDS ORDERED: diazePAM 5 MG TABLET PO ONE (06:00)
[2022-10-21] MEDS: INSULIN SLIDING SCALE (NOVOLOG) 1 VIAL SQ SCH (06:32)
[2022-10-21 09:17] VITALS: BP 123/82; PULSE 73; TEMP 98.1
[2022-10-21] MEDS: LACTULOSE 20 GM/30 ML UDC (FOR ORAL USE ONLY) PO SCH (10:19)
[2022-10-21] MEDS: PRENATAL VITAMINS W/ FOLIC ACID TABLET (FP) PO SCH (10:19)
== END 2022-10-21 10:29 | disposition home or self-care (01) | DRG 775 ==
LOC: YASAS 15:12 → Y6N 23:13
PROVIDERS: ADMIT Allergy & Immunology; ATTEND Surgery
PROC: HZ2ZZZZ Detoxification Services for Substance Abuse Treatment (ICD-10-PCS; principal; 2022-10-16)
DX: F10.230 Alcohol dependence with withdrawal, uncomplicated (principal); F17.210 Nicotine dependence, cigarettes, uncomplicated; I10 Essential (primary) hypertension; J45.909 Unspecified asthma, uncomplicated; M54.50 Low back pain, unspecified; M17.0 Bilateral primary osteoarthritis of knee; M19.041 Primary osteoarthritis, right hand; M19.042 Primary osteoarthritis, left hand; G89.29 Other chronic pain; Z99.89 Dependence on other enabling machines and devices; Z86.19 Personal history of other infectious and parasitic diseases; Z56.0 Unemployment, unspecified; Z59.00 Homelessness unspecified
CPT/HCPCS: 36415; 80053; 82140; 82962; 85027; 86780; C9803-CS; U0003; U0005

== ENCOUNTER 2022-11-14 14:51 | Inpatient (IN) | payer OTHER ==
[2022-11-14 16:37] VITALS: BMI 31.1
[2022-11-14] MEDS ORDERED: DICYCLOMINE HCL 10 MG CAPSULE PO PRN (18:22)
[2022-11-14] MEDS ORDERED: NALOXONE HCL 0.4 MG/ML VIAL IM PRN (18:22)
[2022-11-14] MEDS ORDERED: NICOTINE 10 MG CARTRIDGE (INHALER) IH PRN (18:22)
[2022-11-14] MEDS ORDERED: BENZONATATE 200 MG CAPSULE PO PRN (18:22)
[2022-11-14] MEDS ORDERED: BENZOCAINE/MENTHOL (CHLORASEPTIC ) LOZENGE MM PRN (18:22)
[2022-11-14] MEDS ORDERED: IBUPROFEN 400 MG TABLET (FP) PO PRN (18:22)
[2022-11-14] MEDS ORDERED: NALOXONE HCL (KLOXXADO) 8 MG SPRAY NS PRN (18:22)
[2022-11-14] MEDS ORDERED: BISMUTH SUBSALICYLATE 524 MG/30 ML PO PRN (18:22)
[2022-11-14] MEDS ORDERED: MAG HYDROX/AL HYDROX/SIMETH 30 ML UNIT-DOSE CUP PO PRN (18:22)
[2022-11-14] MEDS ORDERED: LOPERAMIDE HCL 2 MG CAPSULE PO PRN (18:22)
[2022-11-14] MEDS ORDERED: POLYETHYLENE GLYCOL (HEALTHYLAX) 3350 17 GM PACKET PO PRN (18:22)
[2022-11-14] MEDS ORDERED: ACETAMINOPHEN 325 MG TABLET (FP) PO PRN (18:22)
[2022-11-14] MEDS ORDERED: MAGNESIUM HYDROX 2400MG/30ML ORAL SUSPENSION 30 ML CUP PO PRN (18:22)
[2022-11-14] MEDS ORDERED: diazePAM 5 MG TABLET PO PRN (18:22)
[2022-11-14] MEDS ORDERED: ONDANSETRON *ODT* 4 MG TABLET SL PRN (18:22)
[2022-11-14] MEDS ORDERED: guaiFENesin 600 MG TABLET.ER (FP) PO PRN (18:22)
[2022-11-14] MEDS ORDERED: ALBUTEROL SO4 HFA INHALER IH PRN (18:38)
[2022-11-14] MEDS ORDERED: diazePAM 5 MG TABLET ONE (19:19)
[2022-11-14] MEDS: MELATONIN 5 MG TABLETS PO SCH (22:39)
[2022-11-14] MEDS: THIAMINE HCL 100 MG TABLET (FP) PO SCH (22:39)
[2022-11-14] MEDS: METHOCARBAMOL 500 MG TABLET PO PRN (22:39)
[2022-11-14] MEDS: hydrOXYzine PAMOATE 25 MG CAPSULE (FP) PO PRN (22:39)
[2022-11-14] MEDS: diazePAM 5 MG TABLET PO SCH (22:39)
[2022-11-15] MEDS: diazePAM 5 MG TABLET PO SCH ×4 (05:52→22:38)
[2022-11-15] MEDS: PRENATAL VITAMINS W/ FOLIC ACID TABLET (FP) PO SCH (10:14)
[2022-11-15] MEDS: IBUPROFEN 600 MG TABLET (FP) PO PRN ×2 (10:17→18:11)
[2022-11-15] MEDS: METHOCARBAMOL 500 MG TABLET PO PRN ×2 (10:17→22:37)
[2022-11-15 11:12] LABS: HEMOGLOBIN 12.9 GM/dL (11.7-16.9); MCH 34.8 pg (25.7-33.7); MCHC 34.9 g/dl (32.0-35.9); MEAN CELL VOLUME 99.9 fl (80-96); MEAN PLT VOLUME 7.3 fl (7.5-11.1); PLATELET COUNT 105 10^3/uL (134-434); POTASSIUM 3.5 mmol/L (3.5-5.1); RBC 3.71 M/mm3 (4.00-5.60); RDW 13.7 % (11.9-15.9); WHITE BLOOD COUNT 7.7 K/mm3 (4.0-10.0)
[2022-11-15 11:15] LABS: ALBUMIN 2.5 g/dl (3.4-5.0); BLOOD UREA NITROGEN 3.2 mg/dL (7-18)
[2022-11-15 11:18] LABS: CREATININE 0.7 mg/dL (0.55-1.3)
[2022-11-15 11:20] LABS: BILIRUBIN,TOTAL 1.7 mg/dL (0.2-1)
[2022-11-15] MEDS: MELATONIN 5 MG TABLETS PO SCH (22:37)
[2022-11-15] MEDS: THIAMINE HCL 100 MG TABLET (FP) PO SCH (22:37)
[2022-11-15] MEDS: hydrOXYzine PAMOATE 25 MG CAPSULE (FP) PO PRN (22:37)
[2022-11-16] MEDS: diazePAM 5 MG TABLET PO SCH ×3 (05:50→22:34)
[2022-11-16] MEDS: METHOCARBAMOL 500 MG TABLET PO PRN ×2 (05:52→22:33)
[2022-11-16] MEDS: IBUPROFEN 600 MG TABLET (FP) PO PRN (05:52)
[2022-11-16] MEDS: PRENATAL VITAMINS W/ FOLIC ACID TABLET (FP) PO SCH (10:18)
[2022-11-16] MEDS: MELATONIN 5 MG TABLETS PO SCH (22:33)
[2022-11-16] MEDS: THIAMINE HCL 100 MG TABLET (FP) PO SCH (22:34)
[2022-11-17] MEDS: diazePAM 5 MG TABLET PO SCH ×2 (06:36→17:24)
[2022-11-17] MEDS: PRENATAL VITAMINS W/ FOLIC ACID TABLET (FP) PO SCH (10:37)
[2022-11-17] MEDS: MELATONIN 5 MG TABLETS PO SCH (22:56)
[2022-11-17] MEDS: THIAMINE HCL 100 MG TABLET (FP) PO SCH (22:56)
[2022-11-18] MEDS ORDERED: diazePAM 5 MG TABLET PO ONE (06:00)
[2022-11-18 10:18] VITALS: BP 104/67; PULSE 104; RESP 17; TEMP 98.1
== END 2022-11-18 11:36 | disposition other institution (70) | DRG 775 ==
LOC: YASAS 14:51 → Y3N 18:53
PROVIDERS: ADMIT Allergy & Immunology; ATTEND Surgery
PROC: HZ2ZZZZ Detoxification Services for Substance Abuse Treatment (ICD-10-PCS; principal; 2022-11-14)
DX: F10.230 Alcohol dependence with withdrawal, uncomplicated (principal); F17.210 Nicotine dependence, cigarettes, uncomplicated; I10 Essential (primary) hypertension; M15.9 Polyosteoarthritis, unspecified; M54.50 Low back pain, unspecified; Z86.19 Personal history of other infectious and parasitic diseases; Z99.89 Dependence on other enabling machines and devices
CPT/HCPCS: 36415; 80053; 85027; 86780; C9803-CS; U0003; U0005

== ENCOUNTER 2023-04-10 22:23 | Inpatient (IN) | payer OTHER ==
[2023-04-11 01:30] VITALS: BMI 43.0
[2023-04-11] MEDS ORDERED: MAG HYDROX/AL HYDROX/SIMETH 30 ML UNIT-DOSE CUP PO PRN (05:38)
[2023-04-11] MEDS ORDERED: LOPERAMIDE HCL 2 MG CAPSULE PO PRN (05:38)
[2023-04-11] MEDS ORDERED: guaiFENesin 600 MG TABLET.ER (FP) PO PRN (05:38)
[2023-04-11] MEDS ORDERED: BENZONATATE 200 MG CAPSULE PO PRN (05:38)
[2023-04-11] MEDS ORDERED: NICOTINE POLACRILEX 2 MG GUM BUC PRN (05:38)
[2023-04-11] MEDS ORDERED: MAGNESIUM HYDROX 2400MG/30ML ORAL SUSPENSION 30 ML CUP PO PRN (05:38)
[2023-04-11] MEDS ORDERED: POLYETHYLENE GLYCOL (HEALTHYLAX) 3350 17 GM PACKET PO PRN (05:38)
[2023-04-11] MEDS ORDERED: IBUPROFEN 400 MG TABLET (FP) PO PRN (05:38)
[2023-04-11] MEDS ORDERED: BISMUTH SUBSALICYLATE 524 MG/30 ML PO PRN (05:38)
[2023-04-11] MEDS ORDERED: BENZOCAINE/MENTHOL (CHLORASEPTIC ) LOZENGE MM PRN (05:38)
[2023-04-11] MEDS ORDERED: ONDANSETRON *ODT* 4 MG TABLET SL PRN (05:38)
[2023-04-11] MEDS ORDERED: DICYCLOMINE HCL 10 MG CAPSULE PO PRN (05:38)
[2023-04-11] MEDS ORDERED: NALOXONE HCL (KLOXXADO) 8 MG SPRAY NS PRN (05:38)
[2023-04-11] MEDS ORDERED: NALOXONE HCL 0.4 MG/ML VIAL IM PRN (05:38)
[2023-04-11] MEDS: PRENATAL VITAMINS W/ FOLIC ACID TABLET (FP) PO SCH (10:14)
[2023-04-11] MEDS: NICOTINE 14 MG/24 HOURS TOPICAL PATCH TD SCH (10:14)
[2023-04-11] MEDS ORDERED: ALBUTEROL SO4 HFA INHALER IH PRN (10:23)
[2023-04-11] MEDS: diazePAM 5 MG TABLET PO SCH ×3 (10:47→22:10)
[2023-04-11] MEDS: TAMSULOSIN HCL 0.4 MG CAP PO SCH (22:10)
[2023-04-11] MEDS: MELATONIN 5 MG TABLETS PO SCH (22:10)
[2023-04-11] MEDS: THIAMINE HCL 100 MG TABLET (FP) PO SCH (22:10)
[2023-04-11] MEDS: IBUPROFEN 600 MG TABLET (FP) PO PRN (22:12)
[2023-04-12] MEDS: diazePAM 5 MG TABLET PO SCH ×4 (05:31→22:05)
[2023-04-12] MEDS: NICOTINE 14 MG/24 HOURS TOPICAL PATCH TD SCH (10:15)
[2023-04-12] MEDS: PRENATAL VITAMINS W/ FOLIC ACID TABLET (FP) PO SCH (10:15)
[2023-04-12] MEDS: IBUPROFEN 600 MG TABLET (FP) PO PRN (14:20)
[2023-04-12] MEDS: ACETAMINOPHEN 325 MG TABLET (FP) PO PRN (17:30)
[2023-04-12] MEDS: THIAMINE HCL 100 MG TABLET (FP) PO SCH (22:05)
[2023-04-12] MEDS: MELATONIN 5 MG TABLETS PO SCH (22:05)
[2023-04-12] MEDS: TAMSULOSIN HCL 0.4 MG CAP PO SCH (22:05)
[2023-04-13] MEDS: diazePAM 5 MG TABLET PO SCH ×3 (05:26→22:08)
[2023-04-13] MEDS: IBUPROFEN 600 MG TABLET (FP) PO PRN ×3 (08:06→22:09)
[2023-04-13] MEDS: diazePAM 5 MG TABLET PO PRN (10:16)
[2023-04-13] MEDS: PRENATAL VITAMINS W/ FOLIC ACID TABLET (FP) PO SCH (10:16)
[2023-04-13] MEDS: ACETAMINOPHEN 325 MG TABLET (FP) PO PRN (10:17)
[2023-04-13] MEDS: NICOTINE 14 MG/24 HOURS TOPICAL PATCH TD SCH (10:17)
[2023-04-13] MEDS: hydrOXYzine PAMOATE 25 MG CAPSULE (FP) PO PRN (10:17)
[2023-04-13] MEDS: THIAMINE HCL 100 MG TABLET (FP) PO SCH (22:08)
[2023-04-13] MEDS: TAMSULOSIN HCL 0.4 MG CAP PO SCH (22:08)
[2023-04-13] MEDS: MELATONIN 5 MG TABLETS PO SCH (22:11)
[2023-04-14] MEDS: hydrOXYzine PAMOATE 25 MG CAPSULE (FP) PO PRN ×2 (06:03→21:50)
[2023-04-14] MEDS: diazePAM 5 MG TABLET PO SCH ×2 (06:03→17:34)
[2023-04-14] MEDS: IBUPROFEN 600 MG TABLET (FP) PO PRN ×2 (06:04→17:35)
[2023-04-14] MEDS: diazePAM 5 MG TABLET PO PRN (08:28)
[2023-04-14] MEDS: NICOTINE 14 MG/24 HOURS TOPICAL PATCH TD SCH (10:19)
[2023-04-14] MEDS: PRENATAL VITAMINS W/ FOLIC ACID TABLET (FP) PO SCH (10:19)
[2023-04-14] MEDS: ACETAMINOPHEN 325 MG TABLET (FP) PO PRN (10:20)
[2023-04-14 12:15] LABS: HEMATOCRIT 31.9 % (35.4-49); HEMOGLOBIN 10.7 GM/dL (11.7-16.9); MCH 32.1 pg (25.7-33.7); MCHC 33.6 g/dl (32.0-35.9); MEAN CELL VOLUME 95.7 fl (80-96); MEAN PLT VOLUME 7.2 fl (7.5-11.1); PLATELET COUNT 283 10^3/uL (134-434); RBC 3.33 M/mm3 (4.00-5.60); RDW 17.6 % (11.9-15.9); WHITE BLOOD COUNT 7.8 K/mm3 (4.0-10.0)
[2023-04-14 12:28] LABS: POTASSIUM 4.4 mmol/L (3.5-5.1)
[2023-04-14 12:36] LABS: ALBUMIN 2.4 g/dl (3.4-5.0); CALCIUM 8.6 mg/dL (8.5-10.1)
[2023-04-14 12:38] LABS: CREATININE 0.6 mg/dL (0.55-1.3)
[2023-04-14 12:40] LABS: BILIRUBIN,TOTAL 0.9 mg/dL (0.2-1); TOT PROT 5.8 g/dl (6.4-8.2)
[2023-04-14] MEDS: TAMSULOSIN HCL 0.4 MG CAP PO SCH (21:50)
[2023-04-14] MEDS: MELATONIN 5 MG TABLETS PO SCH (21:50)
[2023-04-14] MEDS: THIAMINE HCL 100 MG TABLET (FP) PO SCH (21:50)
[2023-04-15] MEDS ORDERED: diazePAM 5 MG TABLET PO ONE (06:00)
[2023-04-15 06:04] VITALS: RESP 17
[2023-04-15] MEDS: IBUPROFEN 600 MG TABLET (FP) PO PRN (07:53)
[2023-04-15 08:49] VITALS: BP 146/86; PULSE 80; TEMP 98.4
[2023-04-15] MEDS: NICOTINE 14 MG/24 HOURS TOPICAL PATCH TD SCH (10:32)
[2023-04-15] MEDS: PRENATAL VITAMINS W/ FOLIC ACID TABLET (FP) PO SCH (10:32)
== END 2023-04-15 12:49 | disposition home or self-care (01) | DRG 775 ==
LOC: YASAS 22:23 → Y3N 04-11 05:58
PROVIDERS: ADMIT Allergy & Immunology; ATTEND Surgery
PROC: HZ2ZZZZ Detoxification Services for Substance Abuse Treatment (ICD-10-PCS; principal; 2023-04-11)
DX: F10.230 Alcohol dependence with withdrawal, uncomplicated (principal); F12.20 Cannabis dependence, uncomplicated; F10.24 Alcohol dependence with alcohol-induced mood disorder; I10 Essential (primary) hypertension; J45.20 Mild intermittent asthma, uncomplicated; N40.1 Benign prostatic hyperplasia with lower urinary tract symptoms; N39.43 Post-void dribbling; R04.0 Epistaxis; M17.0 Bilateral primary osteoarthritis of knee; M54.50 Low back pain, unspecified; Z99.89 Dependence on other enabling machines and devices; Z87.891 Personal history of nicotine dependence
CPT/HCPCS: 36415; 80053; 82962; 85027; 86780; 87635

== ENCOUNTER 2023-04-11 03:27 | Emergency (ER) | payer OTHER ==
[2023-04-11 03:38] VITALS: BP 144/68; PULSE 106; RESP 18; TEMP 97.7; BMI 31.1
[2023-04-11] MEDS ORDERED: POLYETHYLENE GLYCOL (HEALTHYLAX) 3350 17 GM PACKET PO PRN (05:31)
[2023-04-11] MEDS ORDERED: BISMUTH SUBSALICYLATE 524 MG/30 ML PO PRN (05:31)
[2023-04-11] MEDS ORDERED: BENZONATATE 200 MG CAPSULE PO PRN (05:31)
[2023-04-11] MEDS ORDERED: DICYCLOMINE HCL 10 MG CAPSULE PO PRN (05:31)
[2023-04-11] MEDS ORDERED: IBUPROFEN 400 MG TABLET (FP) PO PRN (05:31)
[2023-04-11] MEDS ORDERED: NICOTINE POLACRILEX 2 MG GUM BUC PRN (05:31)
[2023-04-11] MEDS ORDERED: MAGNESIUM HYDROX 2400MG/30ML ORAL SUSPENSION 30 ML CUP PO PRN (05:31)
[2023-04-11] MEDS ORDERED: guaiFENesin 600 MG TABLET.ER (FP) PO PRN (05:31)
[2023-04-11] MEDS ORDERED: METHOCARBAMOL 500 MG TABLET PO PRN (05:31)
[2023-04-11] MEDS ORDERED: hydrOXYzine PAMOATE 25 MG CAPSULE (FP) PO PRN (05:31)
[2023-04-11] MEDS ORDERED: BENZOCAINE/MENTHOL (CHLORASEPTIC ) LOZENGE MM PRN (05:31)
[2023-04-11] MEDS ORDERED: NALOXONE HCL (KLOXXADO) 8 MG SPRAY NS PRN (05:31)
[2023-04-11] MEDS ORDERED: ACETAMINOPHEN 325 MG TABLET (FP) PO PRN (05:31)
[2023-04-11] MEDS ORDERED: MAG HYDROX/AL HYDROX/SIMETH 30 ML UNIT-DOSE CUP PO PRN (05:31)
[2023-04-11] MEDS ORDERED: ONDANSETRON *ODT* 4 MG TABLET SL PRN (05:31)
[2023-04-11] MEDS ORDERED: IBUPROFEN 600 MG TABLET (FP) PO PRN (05:31)
[2023-04-11] MEDS ORDERED: LOPERAMIDE HCL 2 MG CAPSULE PO PRN (05:31)
[2023-04-11] MEDS ORDERED: NALOXONE HCL 0.4 MG/ML VIAL IM PRN (05:31)
[2023-04-11] MEDS ORDERED: PRENATAL VITAMINS W/ FOLIC ACID TABLET (FP) PO SCH (10:00)
[2023-04-11] MEDS ORDERED: NICOTINE 21 MG/24 HOURS TOPICAL PATCH TD SCH (10:00)
[2023-04-11] MEDS ORDERED: THIAMINE HCL 100 MG TABLET (FP) PO SCH (22:00)
[2023-04-11] MEDS ORDERED: MELATONIN 5 MG TABLETS PO SCH (22:00)
== END 2023-04-11 04:42 | disposition home or self-care (01) ==
LOC: JER 03:27
DX: R04.0 Epistaxis (principal)
CPT/HCPCS: 99282-25